=== PATIENT | male | born 1960 | race Caucasian/White ===

== ENCOUNTER 2019-11-15 05:52 | Inpatient (IN) | payer OTHER ==
--- NOTE | 2019-11-02 13:22 | HP ---
HISTORY AND PHYSICAL: DATE OF ADMISSION/SURGERY: 11/15/19 DATE OF OFFICE VISIT: 11/02/19 SURGEON: Jaylyn Miller MD.* (DICTATED BY ALINA RAGLAND) PROCEDURE: Right total hip arthroplasty. CHIEF COMPLAINT: Right hip pain. HISTORY OF PRESENT ILLNESS: Mr. Man is a 59-year-old gentleman with endstage osteoarthritis of the right hip. He has failed conservative treatment and elected to proceed with a right total hip arthroplasty. PAST MEDICAL HISTORY: 1. AFib. 2. Hypertension. 3. Prostate cancer. 4. Sleep apnea. PAST SURGICAL HISTORY: 1. Left shoulder clavicle resection. 2. Hemorrhoidectomy. 3. Hernia repair x2. 4. Cardiac ablation. CURRENT MEDICATIONS: 1. Propafenone 150 mg as needed. 2. Xanax 2.5 mg as needed. 3. Diltiazem 180 mg daily. 4. Multivitamin. 5. CoQ10. ALLERGIES: No known drug allergies. FAMILY HISTORY: Diabetes, coronary artery disease, and cancer. SOCIAL HISTORY: This 59-year-old gentleman lives with his . He does not smoke or use drugs. REVIEW OF SYSTEMS: A complete 14-point review of systems was reviewed with the patient, all negative or noncontributory. He denies history of DVT, PE, hepatitis, HIV, or anesthesia problems. PHYSICAL EXAMINATION GENERAL: He is well developed, well nourished, no acute distress. VITAL SIGNS: He stands 66 inches tall, weighs 186 pounds, blood pressure 140/68 , heart rate 75. HEENT: Normocephalic, atraumatic. NECK: Supple. No palpable lymph nodes. PULMONARY: The lungs are clear to auscultation bilaterally. CARDIO: Regular rate and rhythm. Strong S1 and S2. ABDOMEN: Soft, nontender, nondistended. MUSCULOSKELETAL: Right lower extremity skin is intact. There are no open wounds or abrasions. He walks with an antalgic type gait favoring his right hip. He has decreased internal and external rotation of the right hip. He is able to to dorsiflex and plantarflex. He has 2+ dorsalis pedis pulse and intact sensation. NEUROLOGIC: He is alert and oriented x3. ASSESSMENT AND PLAN: Mr. Man is a 59-year-old gentleman with endstage osteoarthritis of the right hip. He has failed conservative treatment and elected to proceed with a right total hip arthroplasty. Surgery is scheduled for 11/15/[address] Miller discussed the risks and benefits of the surgery at today's visit and all of his questions were answered. He will follow up with Dr. Miller 2 weeks after the surgery. ALINA RAGLAND [id number]/[facility] #: [id number] [facility]ITAL[facility]
[~2019-11-15 05:52] MED LIST: Buffered Lidocaine 1% SYRIN* 1 ML/SYRINGE INTRADERM ONE; Tranexamic Acid 1,000 MG in NS 0.9% 50 ML* (outpatient use) IV SCH
--- OUTSIDE RECORDS SUMMARY | 2019-11-15 05:55 | XMS REPORT | Continuity of Care Document ---
:1960 External Reference #:[id number] Author Name Jaylyn Miller M.D. (transmitted by agent of provider Jennifer Still) Address [address] [place] [address] Care Team Providers Name Role Phone Roslyn Magana FNP - Family Care Team Information [employer] [phone] Problems Active Problems Provider Date Localized, primary osteoarthritis of the pelvic Jaylyn Miller M.D. Onset: region and thigh Social History Type Date Description Comments Sex Unknown Tobacco Use Start: Unknown Patient has never smoked Smoking Status Reviewed: 11/02/19 Patient has never smoked Allergies, Adverse Reactions, Alerts Description No Known Drug Allergies Medications Active Medications SIG Qnty Indications Ordering Provider Date Propafenone HCL three times a 90tabs Jaylyn Miller M.D. 09/24/2019 150mg day Tablets Oxycodone-Acetaminoph 1-2 tabs by 60tabs M25.551 Jaylyn Miller M.D. 2018 en mouth every 12 5-325mg Tablets hours as needed for pain Xanax 2.5mg prn Unknown Diltiazem HCL ER 1 by mouth every Unknown Beads day 180mg Caps ER 24HR Multi For Him 50+ once a day Unknown Tablets Co Q-10 Unknown Immunizations Description No Information Available Vital Signs Date Vital Result Comment 11/02/2019 10:05am Height 66 inches 5'6" Weight 186.00 lb Heart Rate 75 /min BP Systolic 140 mmHg BP Diastolic 68 mmHg Respiratory Rate 16 /min Pain Level 5 BMI (Body Mass Index) 30.0 kg/m2 09/24/2019 2:32pm Height 66 inches 5'6" Weight 184.00 lb Heart Rate 68 /min BP Systolic 148 mmHg BP Diastolic 100 mmHg Body Temperature 97.4 F Pain Level 5 BMI (Body Mass Index) 29.7 kg/m2 Results Test Acquired Date Facility Test Result H/L Range Note Type & Screen 11/02/2019 [facility] Patient Blood AB Positive [address] [place] [address] [phone] Antibody Screen NEGATIVE 1 PAIN IN RIGHT HIP, UNILATERAL PRIMARY OSTEOARTHRIT Procedures Description No Information Available Medical Devices Description No Information Available Encounters Type Date Location Provider Dx Diagnosis Office Visit 09/24/2019 [facility] Jaylyn Miller M25.551 Pain in right hip 2:00p at [facility] M16.11 Unilateral primary osteoarthritis, right hip Assessments Date Code Description Provider 11/02/2019 M16.11 Unilateral primary osteoarthritis, right hip Jaylyn Miller M.D. 11/02/2019 M25.551 Pain in right hip Jaylyn Miller M.D. 09/24/2019 M25.551 Pain in right hip Jaylyn Miller M.D. 09/24/2019 M16.11 Unilateral primary osteoarthritis, right hip Jaylyn Miller M.D. Plan of Treatment Future Appointment(s):11/15/2019 4:30 pm - Frankie Mora PA-C at [facility] at P[place]7511/15/2019 4:30 pm - ALINA Wang at [facility] at [place]/28/2019 10:30 am - Jaylyn Miller M.D. at [facility] at Lqod[place]0811/15/2019 4:30 pm - Jaylyn Miller M.D. at [facility] at [place]1111/02/2019 - Jaylyn Miller M.D.M16.11 Unilateral primary osteoarthritis, right hipFollow up:Follow up: 2 weeks after bpmrvviS98.551 Pain in right hip Functional Status Description No Information Available Mental Status Description No Information Available Referrals Description No Information Available
--- OUTSIDE RECORDS SUMMARY | 2019-11-15 05:55 | XMS REPORT | Continuity of Care Document ---
:1960 Author Organization 0001 - [employer] [facility] Address [address] [place] [address] Phone Care Team Providers Name Role Phone BRYAN HARDING MD Unavailable Unavailable Allergies, Adverse Reactions, Alerts Substance Reaction Status No Known Allergies Active Medications Medication Instructions Dosage Effective Status Comments Dates (start - stop) levofloxacin 500 mg take 1 tablet by 500 MG - Active tablet oral route every 24 hours diltiazem ER 180 mg take 1 capsule by - Active capsule,24 hr,extended oral route on release days of palpatations. tramadol 50 mg tablet take 1 by Oral 1 - Active route every 6 hours gabapentin 300 mg capsule take 1 capsule by 300 MG - Active oral route 3 times every day hydrochlorothiazide 12.5 take 1 by Oral 1 - Active mg tablet route every day propafenone 150 mg tablet take 3 by Oral - Active route in case of rapidheart rate. as needed alprazolam 0.5 mg tablet take 1 tablet by - Active MDD 3 ORAL route 3 times every day as needed. oxycodone-acetaminophen 5 take 1 tablet by 1.00 tablet - Active mg-325 mg tablet oral route every 6 hours as needed multivitamin tablet take 1 tablet by - Active oral route every day with food coenzyme Q10 10 mg - Active capsule Problems Condition Effective Dates (start - stop) Clinical Status Elevated PSA Prostate cancer Right testicular pain Prostate cancer Essential (primary) hypertension - Elevated prostate specific antigen - [PSA] Encntr for general adult medical exam w/o abnormal findings Primary osteoarthritis of both hips Spondylosis of lumbar region without myelopathy or radiculopathy Elevated PSA Essential (primary) hypertension Right testicular pain Encounter for surgical aftcr following - surgery on the sys Preop cardiovascular exam PAF (paroxysmal atrial fibrillation) Essential (primary) hypertension - Cntct w and expsr to environ tobacco - smoke (acute) (chronic) Preoperative general physical examination Testicular pain, right Essential hypertension Paroxysmal atrial fibrillation Cntct w and expsr to environ tobacco - smoke (acute) (chronic) Right inguinal hernia Right lower quadrant pain - Elevated PSA Testicular pain, right Primary osteoarthritis of both hips Essential hypertension Cntct w and expsr to environ tobacco - smoke (acute) (chronic) PSA elevation Right testicular pain Malignant neoplasm of prostate - Prostate cancer Essential hypertension Cntct w and expsr to environ tobacco - smoke (acute) (chronic) Prostate cancer Hematuria, gross Prostate cancer Testicular pain, right Prostatitis, acute Encounter for surgical aftcr following - surgery on the sys Klebsiella pneumoniae sepsis Prostate cancer Prostate cancer Preoperative general physical examination Groin pain, chronic, right Paroxysmal atrial fibrillation Essential hypertension Testicular pain, right Testicular pain, right Elevated PSA Elevated PSA Groin pain, chronic, right Other chronic pain Elevated blood pressure reading Elevated PSA Essential hypertension Cntct w and expsr to environ tobacco - smoke (acute) (chronic) Elevated PSA Paroxysmal atrial fibrillation Essential hypertension Irritable bowel syndrome with constipation Essential hypertension Elevated PSA Chronic gastritis without bleeding, unspecified gastritis type Encounter for general adult medical - exam w abnormal findings Body mass index (BMI) 30.0-30.9, adult - Encounter for screening for other - disorder Bronchitis Essential hypertension Cntct w and expsr to environ tobacco - smoke (acute) (chronic) Right inguinal hernia Elevated blood pressure reading Encntr for f/u exam aft trtmt for cond - oth than malig neoplm Right inguinal hernia Elevated blood pressure reading Right groin hernia Groin strain, right, subsequent encounter Essential (primary) hypertension Chronic gastritis without bleeding, unspecified gastritis type Abdominal muscle strain, initial encounter Paroxysmal atrial fibrillation Acute non-recurrent maxillary sinusitis Bronchitis Other specified health status - Other specified health status - Rubella immune status not known Encntr for general adult medical exam w/o abnormal findings Essential (primary) hypertension Irritable bowel syndrome with constipation Paroxysmal atrial fibrillation - Benign prostatic hyperplasia with lower urinary tract symptoms, unspecified morphology Essential (primary) hypertension Irritable bowel syndrome with constipation Essential (primary) hypertension - Hypertension Paroxysmal atrial fibrillation Benign prostatic hyperplasia with lower urinary tract symptoms, unspecified morphology Impaired vision Atrial fibrillation Pain, joint, multiple sites Elevated blood pressure Pain, joint, multiple sites Screening examination for infection due to a bacteria Fatigue Procedures Procedure Date Procedure Unknown Results Test Name Date and Time Measure Units Reference Range Abnormal Flag Status Comments Panel Description: PHI13 Final FREE PSA 12:01:00 0.7 ng/mL Final [-2]PROPSA 12:01:00 17.2 pg/mL Final % FREE PSA 12:01:00 10 % Final % Free PSA Probability of Cancer < or =10% 56%11 - 15% 28%16 - 20% 20%21 - 25% 16%>25% 8%

[facility] 12:01:00 66.4 Final phi range INDEX Probability 95% Confidence of Cancer Interval 0 - 26.9 9.8% 5.2 - 15.4%27.0 - 35.9 16.8% 11.3 - 22.2%36.0 - 54.9 33.3% 26.8 - 39.9%> or = 55.0 50.1% 39.8 - 61.0% AD DITIONAL INFORMATION ----The testing method is an immunoenzymatic assaymanufactured by [employer] and performedon the [employer] DxI 800.Values obtained with different assay methods orkits may be different and cannot be usedinterchangeably.Test results cannot be interpreted as absoluteevidence for the presence or absence ofmalignant disease.Test Performed by:[address] [address]Ocn Director: Elbert Rankin M.D. Ph.D.; CLIA# [id number]

Panel Description: MPHI1 Final PROSTATE 7.3 ng/mL <=3.5 H Final Test Performed by:[facility] 12:01:[address] [address]Llh Director: Elbert Rankin M.D. Ph.D.; CLIA# [id number]

Encounters Encounter Practice Location Reason(s) Diagnoses Date Provider Providers Description For Visit Copied on Encounter 0001 [facility] Urology Elevated PSA GTx, BRYAN. 30 33-57 [address] [address], [place], [place], [place], [address], [place] [address]. tel:+ tel:[phone] - Lab - [facility] 3 GTx, 0-201 BRYAN. 30 -57 9 [address] [address], [place], [place], [place], [address], [place] [address]. tel:+60 tel:[phone] - [facility] Primary Sep-2 [facility] [address] [place] [address] [place], [place], [place] [address]. [place], [place], tel:[phone], [place] 056432 tel:[phone] 2019 - [facility] Primary Nov- [employer], [facility] 9[address]201 GALE. [facility] [place] [address] 119 [facility], [place], [place], [place] [address]. [place], tel:[phone], [place] 873524 tel:[phone] 0001 - [facility] Urology Prostate cancer Nov-0 [employer] [facility] [employer], 6-201 BRYAN. 9 [facility], [facility], [place], [place], [place], [address], [place] [address]. tel:+60 tel:[phone] - S Urology Right testicular Nov-0 KRAVCHICK S Inc, painProstate 1- BRYAN. cancer 9 [facility], [facility], [place], [place], [place], [address], [place] [address]. tel:+60 tel:[phone] - S Primary Essential Oct-2 [employer], [place] (primary) 1- GALE. [facility] [place] hypertensionEleva 9 PC 119 [facility] prostate [facility], specific antigen [facility] [[place] [address]. [place], general adult tel:[phone], [place] medical exam w/o 860221 tel:[phone] findingsPrimary osteoarthritis of both hipsSpondylosis of lumbar region without myelopathy or radiculopathy 0001 - S Primary Elevated Oct-0 [employer], [facility] [place] PSAEssential 8-201 GALE. [facility] [place] (primary) 9 PC 119 [facility] hypertension [facility], [place], [place], [place] [address]. [place], tel:[phone], [place] 358157 tel:[phone] 0001 - [facility] Urology Right testicular Aug-2 KRAVCHICK [employer] Inc, painEncounter for 3-201 BRYAN. surgical aftcr 9 [facility] surgery [facility], on the [address], [place], [place], [place], [address], [place] [address]. tel:+ tel:[phone] - [facility] Preop Apr-3 AHMED S Inc, Cardiology cardiovascular 0-201 DANIEL. [facility] 33-57 examPAF 9 30 Jackchaim Santiago (paroxysmal Street, Street, atrial [address], [place] fibrillation)Esse [place], [place], ntial (primary) [place], [address], [place] hypertensionCntct [address]. tel:+60 w and expsr to tel:[phone] environ tobacco [phone] smoke (acute) (chronic) 0001 - S Primary Preoperative Apr- [employer] Inc, [facility] [place] general physical 9-201 GALE. [facility] [place] examinationTestic 9 PC 119 [facility] ular pain, [facility], [place], [place], [place] hypertensionParox [address]. [place], ysmal atrial tel:[phone], [place] fibrillationCntct 119553 tel:+[phone] w and expsr to [phone] environ tobacco smoke (acute) (chronic) 0001 - [facility] Surgery Right inguinal Lino-2 ARONIS [employer] Inc, herniaRight lower 5-201 GARY. 30 33-57 quadrant pain 9 [facility], [address], [address], [place], [place], [place], [address], [place] [address]. tel:+60 tel:[phone] - [facility] Urology Elevated Lino-0 KRAVCHICK S Inc, PSATesticular 7- BRYAN. 30 33-57 pain, right [address], [place], [place], [place], [address], [place] [address]. tel:+ tel:[phone] - [facility] Primary Primary January- [employer], [facility] [place] osteoarthritis of GALE. [facility] [address] both 9 PC 119 [facility], hypertensionCnt[facility] [place] [address]. [place], environ tobacco tel:[phone], [place] smoke (acute) [address] tel:+ (chronic) [phone] 0001 - [facility] Urology PSA Apr-1 SeGan Angel [employer] S Inc, elevationRight 5- BRYAN. 30 -57 testicular pain 9 [facility], [address], [place], [place], [place], [address], [place] [address]. tel: tel:[phone] - [facility] Urology Malignant Apr-0 [employer] Inc, neoplasm of BRYAN. 30 -57 prostate 9 [facility], [address], [place], [place], [place], [address], [place] [address]. tel: tel:[phone] - [facility] Primary Prostate Mar- SKIFF S Inc, [facility] [place] cancerEssential 8 GALE. [facility] 3357 [place] hypertensionCntct [address] [facility] and expsr to [facility], [place], [place], [place] smoke (acute) [address]. [place], (chronic) tel:[phone], [place] 441616 tel: [phone] 0001 - [facility] Urology Prostate cancer Dec- [employer], BRYAN. 30 57 9 [facility], [facility], [place], [place], [address], [place] [address]. tel: tel:[phone] - [facility] Urology Hematuria, gross Nov- MATIAS [facility], 3 CHRISTOPHER 33-57 9 . 30 [facility], [place], [place] [address], [place], [place] [address], [place], tel:[phone] tel:[phone] [facility] Urology Prostate Jorge Luis- [employer], cancerTesticular 5- BRYAN. 30 3357 pain, 9 [facility] rightProstatitis, [facility], acuteEncounter 460, [place] for surgical [place], aftcr [place], [address], [place] the [address]. tel: sys tel:[phone] - [facility] Primary Klebsiella Dec-2 SKIFF [facility] [employer], [facility] [place] pneumoniae 4-201 GALE. [facility] 33-57 [place] sepsisProstate 8 PC 119 Whfernandez Jack cancer [facility], [place], [place] [address]. [place], [place], tel:[phone], [place] 435821 tel: [phone] 0001 - S Urology Prostate cancer Dec-1 [employer], 4-201 BRYAN. 30 [address] [facility], [facility], [place], [place], [address], [place] [address]. tel: tel:[phone] - [facility] Primary Preoperative Dec-0 [employer]IFF [facility] [employer], [facility] [place] general physical 3-201 GALE. [facility] 33-57 [place] examinationGroin 8 PC 119 Whig Jack pain, chronic, [facility], rightParoxysmal [place], [place], [place] atrial [address]. [place], [place], fibrillationEssen tel:[phone], [place] tial 874728 tel: hypertensionTesti [phone] cular pain, right 0001 - [facility] Urology Testicular pain, Nov-3 [employer], right 0-201 BRYAN. 30 [address] [facility], [facility], [place], [place], [address], [place] [address]. tel: tel:[phone] - S Urology Elevated PSA Oct-3 [employer], 1-201 BRYAN. 30 [address] [facility], [facility], [place], [place], [address], [place] [address]. tel: tel:[phone] - [facility] Urology Elevated PSA Aug-3 [employer], 1-201 BRYAN. 30 [address] [facility], [address], [place], [place], [place], [address], [place] [address]. tel:+60 tel:[phone] - S Surgery Groin pain, Aug- ARONIS S Inc, chronic, 7201 GARY. 30 - rightOther 8 [facility], Street, painElevated [address], [place] blood pressure [place], [place], [address], [place] [address]. tel:+60 tel:[phone] - S Primary Elevated Aug-0 [employer], [facility] PSAEssential 6-201 GALE. [facility] [place] hypertensionCntct 8 PC 119 [facility] Jack w and expsr to [facility], [place], [place], [place] smoke (acute) [address]. [place], (chronic) tel:[phone], [place] 796673 tel:[phone] 0001 - S Primary Elevated Apr-3 [facility]US[facility] Technology SolutionsS Inc, [facility] PSAParoxysmal 0-201 GALE. [facility] [place] atrial 8 PC 119 [facility] fibrillationEssen [facility], [facility] hypertension [place], [place] [address]. [place], [place], tel:[phone], [place] 128610 tel:[phone] 0001 - S Primary Irritable bowel Apr-1 [employer], [facility] syndrome with 3-201 GALE. [facility] 3357 [place] constipationEssen 8 PC 119 [facility], hypertensionEleva [place], [place] astrid PSAChronic [address]. [place], gastritis without tel:[phone], [place] bleeding, 262686 tel:[phone] unspecified [phone] gastritis typeEncounter for general adult medical exam w abnormal findingsBody mass index (BMI) 30.0-30.9, adultEncounter for screening for other disorder 0001 - [facility] Primary BronchitisEssenti Dec-2 SKIFF [employer] Inc, [place] al 6-201 GALE. [facility] 33-57 [place] hypertensionCntct 7 PC 119 [facility] and expsr to [facility], [place], [place], [place] smoke (acute) [address]. [place], (chronic) tel:[phone], [place] 858392 tel:[phone] 0001 - [facility] Surgery Right inguinal Lino-3 ARONIS [facility] [employer], herniaElevated 0-201 GARY. 30 33-57 blood pressure 7 Jack wrightEncntr for [place], f/u exam aft [address], [place] trtmt for cond [place], [place], [address], [place] neoplm [address]. tel:+60 tel:[phone] - [facility] Surgery Right inguinal Lino-0 ARONIS [facility], herniaElevated 2-201 GARY. 30 33-57 blood pressure [address] [facility], [address], [place], [place], [place], [address], [place] [address]. tel:+60 tel:[phone] - [facility] Primary Right groin May-3 [facility], [place] hernia 0-201 GALE. [facility] - [place] 7 PC 119 [facility], [place], [place] [address]. [place], [place], tel:[phone], [place] 069940 tel:[phone] 0001 - [facility] Primary Groin strain, Apr-2 SKIFF [facility], Care [facility], subsequent 4-201 GALE. [facility] 33- [place] encounter 7 PC 119 [facility], [place], [place] [address]. [place], tel:[phone], [place] 509585 tel:[phone] 0001 - [facility] Primary Essential Apr-0 [employer] [facility], [place] (primary) 3-201 GALE. [facility] 33-57 [place] hypertensionChron 7 PC 119 [facility], without bleeding, [place], [place] unspecified [address]. [place], gastritis tel:[phone], [place] typeAbdominal 374503 tel:[phone] muscle strain, [phone] initial encounterParoxysm al atrial fibrillation 0001 - [facility] Primary Acute Oct-3 SKIFF S Inc, [place] non-recurrent GALE. [address] maxillary 6 PC 119 [facility] sinusitisBronchit [facility], [place], [place], [place] [address]. [place], tel:[phone], [place] 776843 tel:[phone] 0001 - [facility] Primary Other specified Oct-2 [facility], [facility] health status 1- GLAE. [address] [place], [place] [address]. [place], tel:[phone], [place] 525248 tel:[phone] 0001 - S Primary Other specified Oct-0 [facility], [facility] health status - GALE. [address] [place], [place] [address]. [place], [place], tel:[phone], [place] 166678 tel:[phone] 0001 - [facility] Primary Rubella immune Sep-2 [facility] [facility], [facility] status not known GALE. [address] [place], [place] [address]. [place], tel:[phone], [place] 038272 tel:[phone] 0001 - [facility] Primary Encntr for May- [facility] [facility], [facility] general adult GALE. [address] medical exam w/o 6 PC 119 [facility] abnormal [facility], [place], [place], [place] (primary) [address]. [place], hypertensionIrrit tel:[phone], [place] able bowel 295533 tel:[phone] syndrome with [phone] constipationParox ysmal atrial fibrillation 0001 - [facility] Primary Aug-0 SKIFF S Inc, [place] GALE. [address] 6 [address] 119 [facility], [place], [place] [address]. [place], [place], tel:[phone], [place] 093018 tel:[phone] 0001 - S Primary Benign prostatic Aug-0 [facility] [employer], [facility] hyperplasia with 8-201 GALE. [facility] 33-57 [place] lower urinary 6 PC 119 [facility] tract symptoms, [facility], unspecified [place], [place] morphologyEssenti [address]. [place], al (primary) tel:[phone], [place] hypertension 178941 tel:[phone] 0001 - S Primary Irritable bowel Apr-2 [facility] [employer], [facility] syndrome with 2-201 GALE. [facility] 33-57 [place] constipation 6 PC 119 [facility], [place], [place], [place] [address]. [place], [place], tel:[phone], [place] 051490 tel:[phone] 0001 - S Primary Essential Dec-1 LORD CAMERON. [facility], [facility] (primary) 7-201 [facility] 119 33-57 [place] hypertension 5 [facility], [place], [place], [place] [address]. [place], [place], tel:[phone], [place] 524558 tel:[phone] 0001 - [facility] Primary HypertensionParox Dec-1 [facility] [employer], [facility] ysmal atrial 4-201 GALE. [facility] 33-57 [place] fibrillationBenig 5 PC 119 [facility] n [facility], hyperplasia with [place], [place], [place] lower urinary [address]. [place], tract symptoms, tel:[phone], [place] unspecified 129416 tel:[phone] morphologyImpaire [id number] d vision 0001 - S Primary Atrial Sep-2 [facility] [employer], [facility] fibrillationPain, 4-201 GALE. [facility] 33-57 [place] joint, multiple 5 PC 119 [facility] sitesElevated [facility], blood pressure [place], [place], [place] [address]. [place], tel:[phone], [place] 880004 tel:[phone] 0001 - S Primary Pain, joint, Sep-1 [facility] [employer], [facility] multiple 8-201 GALE. [facility] 33-57 [place] sitesScreening 5 PC 119 Astrid Santiago examination for , [facility], infection due to [place], [place] bacteriaFatigue [address]. [place], tel:[phone], 460922 tel:[phone] Family History Family Member Diagnosis Age At Onset Father Cardiovascular disease Mother Cardiovascular disease Family h/o Cancer - prostate Mother Diabetes mellitus type 2 Father Diabetes mellitus type 2 Immunizations Vaccine Date Status Comments Immunization Unknown Payers Payer name Insurance type Covered green party ID Authorization(s) [facility] [id number] Social History Type Description Quantity Date Captured Comments Alcohol Use Details Unknown Caffeine Use Details Unknown Tobacco Use Status Unknown Smoking Status Unknown Vital Signs Date / Height Weight BMI Pulse Blood Temperature Respiratory Body Head BMI Time: Rate Pressure Rate Surface Circumference percentile Area Unknown Chief Complaint And Reason For Visit No information Reason For Referral Reason For Referral Unknown Plan Of Care Date Type Action Status Referral Ordered: ordered Pathology (tissue specimen) Referral Referred To: ordered [facility] [address] [place], [phone] Ordered: Referrals: Urology. [facility]. Consult Referral Ordered: ordered CT Urogram (No PO Contrast) Appointment date/timeframe: 12/04/2018 Referral Ordered: ordered MRI, Pelvis w/ and w/o contrast Appointment date/timeframe: 11/27/2018 Referral Ordered: ordered Urology (related to Elevated PSA) Referral Ordered: ordered Referrals: Urology. Location: [facility] Urology Referral Ordered: ordered Xray Chest 2 view Appointment date/timeframe: Today Referral Ordered: ordered *EKG Complete Appointment date/timeframe: Today Referral Ordered: ordered Referrals: Surgery. Location: [facility] Surgery. Evaluate and treat Appointment date/timeframe: 03/15/2017 Referral Referred To: ordered JAMI BARONE OD [address] [place], [address] [phone] Ordered: Referrals: Supervisor Respiratory. JAMI BARONE OD. Evaluate and treat Appointment date/timeframe: 2 Weeks Referral Referred To: ordered GALE NOBLES MD [address] [place], [address] [phone] Ordered: Referrals: Cardiology. GALE NOBLES MD. Evaluate and treat Appointment date/timeframe: 1 Month Appointment [facility] Appointment [facility] Date Type Problem Goal Intervention Status Start Date Unknown History Of Present Illness Encounter Date Complaint History Of Present Illness No information Functional Status Encounter Date Functional Assessment Cognitive Assessment Unknown Medications Administered Medication Instructions Dosage Effective Dates (start - stop) Status Comments Drug Treatment Unknown Instructions Date Instruction Additional Information Risks and benefits of new medication Related to [facility]vated [facility]. [facility] of both [facility] Followed by urology Related to Elevated prostate specific antigen [PSA] Screening blood tests done today Related to Encntr for general adult medical exam w/o abnormal findings Will start hydrochlorthiazide once a Related to Essential ( primary) day in the morning. We would like the hypertension blood pressure to be below 130/80 on most occaisions. An ideal blood pressure is around 120/80. History of paroxysmal atrial Related to PAF (paroxysmal atrial fibrillation status post ablation fibrillation) therapy done in 2004 currently on diltiazem and propafenone. He is in normal regular sinus rhythm asymptomatic with occasional palpitations. No further testing needed I will see him in 6 months sooner if symptomatic 58-year-old male with history of Related to Preop cardiovascular hypertension paroxysmal atrial exam fibrillation status post radiofrequency catheter ablation for atrial fibrillation in [place] 2004 currently on diltiazem and propafenone, no anti-coagulation came in for preop cardiac evaluation prior to nerve ablation procedure scheduled next week. He is asymptomatic from cardiac standpoint without chest pain chest pressure shortness of breath occasional palpitations but no syncope near syncopal episodes. He has history of hypertension for which he takes diltiazem. He is on no anticoagulation EKG shows normal regular sinus rhythm. He is asymptomatic unchanged EKG and unremarkable physical examination no further cardiac work-up needed he is undergoing low risk surgery I would continue current medical therapy regular follow-up in 6 months Will hold any blood thinning agents Related to Paroxysmal atrial prior to the procedure. fibrillation Scheduled for radioablation of Related to Testicular pain, right irritated neve fibers Continue the ditiazem. Related to Essential hypertension Pending cardiac clearance . Otherwise, Related to Preoperative general no contratindication to the indicated physical examination procedure Will use tramadol while starting the Related to [facility] of [facility] Continue ross current blood pressure Related to Essential hypertension medicaitons Risks and benefits of new medication Related to PSA elevation discussed. Related to Malignant neoplasm of prostate Related to Malignant neoplasm of prostate Related to Malignant neoplasm of prostate Related to Malignant neoplasm of prostate Related to Malignant neoplasm of prostate TAke the diltiazem once daily. Call if Related to Essential hypertension there are problems. Will try to arrange for a second Related to Prostate cancer opinion through [facility] after the results of the second biopsy are back. We decided to perform MRI guided Related to Prostate cancer biopsies of suspicious lesionWe will start antibiotics treatment 2 weeks before his biopsy and continue for additional 5 days Will folllw up with Dr. Harding. Related to Prostate cancer Will complete the course of Related to Klebsiella pneumoniae antibiotics. sepsis He will take diltiazem ross morning of Related to Essential hypertension the procedure as well as alprazolam to prevent undue rise in BP. After the procedure , he will try changing to amlodipine from lisinopil . Uses propafenone and ditiazem on a as Related to Paroxysmal atrial needed basis for atrial fibrillation . fibrillation To take ross diltiazem the morning of the procedure with the intent of preventing excessive rise in BP adn the A fib. No contraindication to proceeding with Related to Preoperative general this procedure. He will take diltiazem physical examination and xanax prior to coming in for the procedure , as well as the evening before. Your blood pressure is elevated today. Related to Elevated blood pressure Follow up with your PCP for a recheck. reading Will call with results. If further Related to Elevated PSA elevated we will arrange follow up with urology. Will resume the lisinopril when he Related to Essential hypertension receives it from the mail order increse the fiber in the diet. Related to Irritable bowel syndrome with constipation Continue the lisinopril. We would like Related to Essential hypertension the blood pressure to be below 130/80 on most occaisions. An ideal blood pressure is around 120/80. I would not hesitate to use antacids. Related to Chronic gastritis Other mediactions are available. without bleeding, unspecified gastritis type Will recheck the PSA in two to three Related to Elevated PSA months Will start amlodipine 5mg daily. We Related to Essential hypertension would like the blood pressure to be below 130/90 on most occaisions. An ideal blood pressure is around 120/80. REsume monitoring at home Will trat with doxycycline. Use Related to Bronchitis albuterol for the cough. Your blood pressure was elevated Related to Elevated blood pressure today, it is recommended you follow up reading with your primary doctor for further evaluation of this issue and recheck of your blood pressure in several days. 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 Avoid stimulants such as nasal decongestants (Sudafed) and foods with caffeine such as chocolate/coffee/tea which can increase your blood pressure. Avoid high salt intake and salty foods which can also increase your blood pressure by contributing to water retention. If you develop any chest pain, dizziness, blurred vision, palpitations/fluttering in your chest/irregular heart beats, shortness of breath, slurred speech/trouble swallowing or any other concerning symptoms please go to the ER or call 911 for further evaluation/treatment. Your blood pressure was elevated Related to Elevated blood pressure today, it is recommended you follow up reading with your primary doctor for further evaluation of this issue and recheck of your blood pressure in several days. 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 Avoid stimulants such as nasal decongestants (Sudafed) and foods with caffeine such as chocolate/coffee/tea which can increase your blood pressure. Avoid high salt intake and salty foods which can also increase your blood pressure by contributing to water retention. If you develop any chest pain, dizziness, blurred vision, palpitations/fluttering in your chest/irregular heart beats, shortness of breath, slurred speech/trouble swallowing or any other concerning symptoms please go to the ER or call 911 for further evaluation/treatment. Try to avoid increased abdominal Related to Groin strain, right, presures, such as straining or lifting subsequent encounter with [facility] abdomen. If the symptoms persist we can seeka surgical opinion. 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 Related to Abdominal muscle strain, initial encounter Can use Rolaids or tums to reduce Related to Chronic gastritis symptoms. Watch for evidence of blood without bleeding, unspecified in the stool. gastritis type Will check old records as he liked the Related to Essential ( primary) BP med he was taking in the . hypertension Will contiue the lisinopril until then. Will followup in the summer wity a complete physical. Start doxycycline Related to Acute non-recurrent maxillary sinusitis Use the albuterol inhaler to help Related to Bronchitis reduce the cough. Continue to follow with Dr. Nobles Related to Paroxysmal atrial fibrillation Will change to losartan ,50 mg onc Related to Essential (primary) edaily.Monitor blood pressures at home hypertension . We would like the blood pressure to be below 140/90 on most occaisions. An ideal blood pressure is around 120/80. Preventive screening up to date. Related to Encntr for general adult medical exam w/o abnormal findings Will trial linzess, starting 145mg Related to Irritable bowel daily. syndrome with constipation Will continue The cialis Related to Benign prostatic hyperplasia with lower urinary tract symptoms, unspecified morphology Will continue to use te alprazolam when Related to Paroxysmal atrial ross A-fib acts up. fibrillation Will continue the lisinopril Related to Hypertension continue to monitor We would like the Related to Elevated blood pressure blood pressure to be below 140/90 on most occaisions. An ideal blood pressure is around 120/80. 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 Related to Atrial fibrillation Resuming regular physical exercise is Related to Pain, joint, multiple recommended. sites Will screenfor rheumatologic illness, Related to Pain, joint, multiple sites Will check a lyme titer Related to Screening examination for infection due to a bacteria Will have labs done today. Related to Fatigue
--- OUTSIDE RECORDS SUMMARY | 2019-11-15 05:55 | XMS REPORT | Continuity of Care Document ---
:1960 Author Organization 0001 - [employer] [facility] [facility] Address [address] [place] [address] Phone Care Team Providers Name Role Phone [...] Units Reference Range Abnormal Flag Status Comments Unknown Encounters Encounter Practice Location Reason(s) Diagnoses Date Provider Providers Description For Visit Copied on Encounter 0001 - [facility] Urology Elevated PSA KRAVCHICK [facility], BRYAN. -57 0 [facility], [facility], [place], [place], [place], [address], [place] [address]. tel: tel:[phone] - [facility], Cardiology DANIEL. [facility] [address], [address], [place], [place], [place], [address], [place] [address]. tel: tel:[phone] - [facility] [facility] GALE. [facility] [place] [address] [place], [place], [place] [address]. [place], tel:[phone], [place] 846463 tel:[phone] 2019 - [facility] GALE. [address] [place], [place], [place] [address]. [place], tel:[phone], [place] 695966 tel:+ [phone] 0001 - [facility] Urology Prostate cancer Nov-0 KRAVCChurn LabsK [employer], [address] BRYAN. 30 9 [facility], [facility], [place], [place], [place], [address], [place] [address]. tel: tel:[phone] - [facility] Urology Right testicular Nov-0 KRAVCBookMyForex.comS Inc, painProstate 1-201 BRYAN. cancer 9 [facility], [facility], [place], [place], [place], [address], [place] [address]. tel: tel:[phone] - [facility] Primary Essential Oct-2 [employer], [facility] [place] (primary) 1- GALE. [facility] [place] hypertensionEleva 9 PC 119 [facility] prostate [facility] antigen [facility] [PS[place] [address]. [place], general adult tel:[phone], [place] medical exam w/o 357820 tel: abnormal [phone] findingsPrimary osteoarthritis of both hipsSpondylosis of lumbar region without myelopathy or radiculopathy 0001 - [facility] Primary Elevated Oct-0 [employer], [facility] [place] PSAEssential 8-201 GALE. [facility] [place] (primary) 9 [address] [facility], [place], [place], [place] [address]. [place], tel:[phone], [place] 579716 tel: [phone] 0001 [facility] [place] Urology Right testicular Aug-2 Quorum SystemsVCBookMyForex.comS Inc, painEncounter for 3-201 BRYAN. surgical aftcr 9 [facility], on [address], [place], [place], [place], [address], [place] [address]. tel: tel:[phone] - [facility] Preop Robin-3 AHMED S Inc, Cardiology cardiovascular 0-201 DANIEL. [facility] 33-57 examPAF 9 [address], Street, atrial [address], [place] fibrillation)Esse [place], [place], ntial (primary) [place], [address], [place] hypertensionCntct [address]. tel:[phone] w and expsr to tel:[phone] environ tobacco [id number] smoke (acute) (chronic) 0001 - S Primary Preoperative Apr- SKIFF [facility], [facility] [place] general physical 9-201 GALE. [facility] 33-57 [place] examinationTestic 9 PC 119 [facility] ular pain, [facility], [place], [place] hypertensionParox [address]. [place], ysmal atrial tel:[phone], [place] fibrillationCntct 412239 tel:[phone] w and expsr to [phone] environ tobacco smoke (acute) (chronic) 0001 - [facility] Surgery Right inguinal Lino-2 ARONIS [employer], herniaRight lower - GARY. 30 33-57 quadrant pain 9 [facility], [place], [address], [place], [place], [place], [address], [place] [address]. tel:+160 tel:[phone] - S Urology Elevated Lino-0 KRAVCChurn LabsK [employer], PSATesticular 7- BRYAN. 30 33-57 pain, right 9 [facility], [address], [place], [place], [place], [address], [place] [address]. tel:+160 tel:[phone] - S Primary Primary January- LocalViewFF [employer], [facility] [place] osteoarthritis of GALE. [facility] 33-57 [place] both 9 PC 119 [facility], hypertensionCntct [place] [address]. [place], environ tobacco tel:[phone], [place] smoke (acute) 823933 tel:[phone] (chronic) [phone] 0001 - S Urology PSA Apr-1 KRAVCHICK [employer], elevationRight 5-201 BRYAN. 30 33-57 testicular pain 9 [facility], [address], [place], [place], [place], [address], [place] [address]. tel:+ tel:[phone] - [facility] Urology Malignant Apr-0 KRAVCChurn LabsK [employer], neoplasm of BRYAN. 30 prostate 9 [facility], [address], [place], [place], [place], [address], [place] [address]. tel: tel:[phone] - S Primary Prostate Dec- [employer], [facility] [place] cancerEssential GALE. [facility] [place] hypertensionCntct 9 PC 119 Whfernandez Santiago and expsr to [facility], [place], [place], [place] smoke (acute) [address]. [place], (chronic) tel:[phone], [place] 218244 tel: [phone] 0001 - [facility] Urology Prostate cancer Dec- Open LendingK [employer], BRYAN. 30 9 [facility], [facility], [place], [place], [address], [place] [address]. tel: tel:[phone] - [facility] Urology Hematuria, gross MATIAS [facility], CHRISTOPHER 57 9 . [address] [facility], [place] Suite [facility], [place], [place] [address], [place], tel:[phone] tel:[phone] - [facility] Urology Prostate Oct- ArcMail S Inc, cancerTesticular BRYAN. 30 pain, 9 [facility] rightProstatitis, [facility], acuteEncounter 460, [place] for surgical [place], [place], [place], [address], [place] surgery [place] the [address]. tel:+ sys tel:[phone] - S Primary Klebsiella Dec-2 Sproutkin S Inc, [facility] pneumoniae 4-201 GALE. [facility] 33-57 [place] sepsisProstate 8 PC 119 [place] cancer [facility], [place], [place] [address]. [place], tel:[phone], [place] 113153 tel:[phone] 0001 - S Urology Prostate cancer Dec- KRAVCHICK [facility], 4-201 BRYAN. 30 8 [facility], [facility], [place], [place], [address], [place] [address]. tel: tel:[phone] - [facility] Primary Preoperative Dec-0 [employer] [facility] [employer], [facility] general physical 3-201 GALE. [facility] 33-57 [place] examinationGroin 8 PC 119 Wh Jack pain, chronic, [facility], rightParoxysmal [place], [place], [place] atrial [address]. [place], fibrillationEssen tel:[phone], [place] tial 125852 tel: hypertensionTesti [phone] cular pain, right 0001 - [facility] Urology Testicular pain, Nov-3 KRAVCHICK [facility] [employer], right 0-201 BRYAN. 30 8 [facility], [facility], [place], [place], [address], [place] [address]. tel: tel:[phone] - [facility] Urology Elevated PSA Oct- KRAVCHICK [facility] [employer], 1-201 BRYAN. 30 8 [facility], [facility], [place], [place], [address], [place] [address]. tel: tel:[phone] - [facility] Urology Elevated PSA May- KRAVCHICK [facility] [employer], 1-201 BRYAN. 30 8 [facility], [facility], [place], [place], [place], [address], [place] [address]. tel: tel:[phone] - [facility] Surgery Groin pain, Aug-1 ARONIS [facility], chronic, 7- GARY. 30 33-57 rightOther 8 Jack Jack chronic [place], [place], painElevated [address], [place] blood pressure [place], [place], [place], [address], [place] [address]. tel:+60 tel:[phone] - S Primary Elevated Aug-0 LIFE[facility] HEALTHFF [employer], [facility] PSAEssential 6-201 GALE. [facility] 33-57 [place] hypertensionCntct 8 PC 119 fernandez Santiago w and expsr to [facility], [place], [place], [place] smoke (acute) [address]. [place], (chronic) tel:[phone], [place] 885409 tel:[phone] 0001 - [facility] Primary Elevated Robin-3 LIFE[facility] HEALTHGeoshoS Inc, [facility] PSAParoxysmal 0-201 GALE. [facility] 33-57 [place] atrial 8 PC 119 [facility] fibrillationEssen [facility], tial hypertension [place], [place], [place] [address]. [place], tel:[phone], [place] 784566 tel:[phone] 0001 - S Primary Irritable bowel Apr-1 [employer], [facility] syndrome with 3-201 GALE. [facility] 33-57 [place] constipationEssen 8 PC 119 [facility], hypertensionEleva [place], [place], [place] astrid PSAChronic [address]. [place], gastritis without tel:[phone], [place] bleeding, 868099 tel:[phone] gastritis typeEncounter for general adult medical exam w abnormal findingsBody mass index (BMI) 30.0-30.9, adultEncounter for screening for other disorder 0001 - S Primary BronchitisEssenti Dec-2 Local[employer]FF [employer], [facility] [place] al 6-201 GALE. [facility] 33-57 [place] hypertensionCntct 7 PC 119 fernandez Santiago w and expsr to [facility], [place], [place], [place] smoke (acute) [address]. [place], (chronic) tel:[phone], [place] 436320 tel:[phone] 0001 - [facility] Surgery Right inguinal Lino-3 ARONIS [facility], herniaElevated 0-201 GARY. 30 33 blood pressure 7 Jack wrightEncntr for Raad [place], f/u exam aft [address], [place] trtmt for cond [place], [place], [place], [address], [place] neoplm [address]. tel:+60 tel:[phone] - [facility] Surgery Right inguinal Lino-0 ARONIS [facility] [employer], herniaElevated 2-201 GARY. 30 33 blood pressure 7 Jack Shankar, [place], [address], [place], [place], [place], [address], [place] [address]. tel:+60 tel:[phone] - [facility] Primary Right groin May-3 [facility] [facility], [facility] [place] hernia 0-201 GALE. [place] [address] [place] 7 [address] 119 [facility], [place], [place] [address]. [place], tel:[phone], [place] 408918 tel:[phone] 0001 - S Primary Groin strain, Apr-2 [facility], Care [facility], subsequent GALE. [address] encounter 7 PC 119 fernandez [facility], [place], [place], [place] [address]. [place], tel:[phone], [place] 712325 tel:[phone] 0001 - S Primary Essential Apr-0 [employer] [facility], [facility] [place] (primary) 3- GALE. [address] hypertensionChron 7 PC 119 [facility] ic gastritis [facility], without bleeding, [place], [place] unspecified [address]. [place], gastritis tel:[phone], [place] typeAbdominal 857011 tel:[phone] muscle strain, [phone] initial encounterParoxysm al atrial fibrillation 0001 - S Primary Acute Oct-3 [facility], [facility] [place] non-recurrent GALE. [address] maxillary 6 PC 119 [facility] sinusitisBronchit [facility], [place], [place], [place] [address]. [place], tel:[phone], [place] 056463 tel:[phone] 0001 - S Primary Other specified Oct-2 SKIFF S Inc, [facility] [place] health status 1-[address] [place], [place] [address]. [place], tel:[phone], [place] 212485 tel:[phone] 0001 - S Primary Other specified Oct-0 [facility] [facility], [facility] [place] health status 5-[address] [place], [place] [address]. [place], tel:[phone], [place] 159121 tel:[phone] 0001 - S Primary Rubella immune Sep-2 [facility] HE[facility] S Inc, [facility] [place] status not known GALE. [facility] [address] [place], [place] [address]. [place], tel:[phone], [place] 154876 tel:[phone] 0001 - [facility] Primary Encntr for May-1 SKIFF S Inc, [facility] general adult 2- GALE. [address] medical exam w/o 6 PC 119 [facility], [place], [place], [place] (primary) [address]. [place], hypertensionIrrit tel:[phone], [place] able bowel 012083 tel:+60 syndrome with [phone] constipationParox ysmal atrial fibrillation 0001 - [facility] Primary Aug-0 [facility] [facility], [facility] [place] [address] [place], [place], [place] [address]. [place], tel:[phone], [place] 226402 tel:[phone] 0001 - S Primary Benign prostatic Aug-0 [facility] HEALTHFF S Inc, [facility] hyperplasia with [address] lower urinary 6 PC 119 [facility] symptoms, [facility], unspecified [place], [place] morphologyEssenti [address]. [facility], [place], al (primary) tel:[phone], [place] hypertension 577131 tel:[phone] 0001 - [facility] Primary Irritable bowel Apr-2 [employer] [facility], [facility] syndrome with 2-201 GALE. [facility] 33-57 [place] constipation 6 PC 119 [facility], [place], [place], [place] [address]. [place], tel:[phone], [place] 906236 tel:[phone] 0001 - S Primary Essential Dec-1 LORD CAMERON. S Inc, [facility] (primary) 7-201 [facility] 119 33-57 [place] hypertension 5 Whig [facility], [place], [place], [place] [address]. [place], tel:[phone], [place] 236483 tel:[phone] 0001 - S Primary HypertensionParox Dec-1 [facility]FF S Inc, [facility] ysmal atrial 4-201 GALE. [facility] [address] [place] [address] fibrillationBenig 5 PC 119 [facility] n prostatic [facility], hyperplasia with [place], [place], [place] lower urinary [address]. [place], tract symptoms, tel:[phone], [place] unspecified 560946 tel:[phone] morphologyImpaire [id number] d vision 0001 - S Primary Atrial Sep-2 [facility], [facility] fibrillationPain, 4-201 GALE. [facility] 33-57 [place] joint, multiple 5 PC 119 [facility] Hospitalon sitesElevated [facility], blood pressure [place], [place], [place] [address]. [place], tel:[phone], [place] 560989 tel:[phone] 0001 - S Primary Pain, joint, Sep-1 [facility], [facility] multiple 8-201 GALE. [facility] 33-57 [place] sitesScreening 5 PC 119 [facility] examination for [facility], infection due to [place], [place] a bacteriaFatigue [address]. [place], tel:[phone], [place] 306390 tel:[phone] Family History Family Member Diagnosis Age At Onset Father Diabetes mellitus type 2 Mother Diabetes mellitus type 2 Family h/o Cancer - prostate Mother Cardiovascular disease Father Cardiovascular disease Immunizations Vaccine Date Status Comments Immunization Unknown Payers Payer name Insurance type Covered republican ID Authorization(s) [facility] [id number] Social History Type Description Quantity Date Captured [...] Pathology (tissue specimen) Referral Referred To: ordered [facility] [address] [place], [address] [phone] Ordered: Referrals: Urology. [facility]. Consult Referral Ordered: ordered CT Urogram (No PO Contrast) Appointment date/timeframe: 12/04/2018 Referral Ordered: ordered MRI, Pelvis w/ and w/o contrast Appointment date/timeframe: 11/27/2018 Referral Ordered: ordered Urology (related to Elevated PSA) Referral Ordered: ordered Referrals: Urology. Location: [facility] Urology Referral Ordered: ordered Xray Chest 2 view Appointment date/timeframe: Today Referral Ordered: ordered *EKG Complete Appointment date/timeframe: Today Referral Ordered: ordered Referrals: Surgery. Location: [facility] Surgery. Evaluate and treat Appointment date/timeframe: 03/15/2017 Referral Referred To: ordered JAIM BARONE OD [address] [place], [phone] Ordered: Referrals: Marketing Professional. JAMI BARONE OD. Evaluate and treat Appointment date/timeframe: 2 Weeks Referral Referred To: ordered GALE NOBLES MD [address] [place], [address] [phone] Ordered: Referrals: Cardiology. GALE NOBLES MD. Evaluate [...] new medication Related to Elevated PSA discussed. Screening blood tests done today Related to Encntr for general adult medical exam w/o abnormal findings Followed by urology Related to Elevated prostate specific antigen [facility]PSA] [facility] to Primary osteoarthritis of both hips Will start hydrochlorthiazide once a Related to [...] radiofrequency catheter ablation for atrial fibrillation in Thai2004 currently on diltiazem and propafenone, no anti-coagulation [...] Paroxysmal atrial prior to the procedure. fibrillation Continue the ditiazem. Related to Essential hypertension Scheduled for radioablation of Related to Testicular pain, right irritated neve fibers Pending cardiac clearance . Otherwise, Related to [...] second Related to Prostate cancer opinion through [facility] after the results of the second biopsy are back. We decided to perform MRI guided Related to Prostate cancer biopsies of suspicious lesionWe will start antibiotics treatment 2 weeks before his biopsy and continue for additional 5 days Will complete the course of Related to Klebsiella pneumoniae antibiotics. sepsis Will folllw up with Dr. Harding. 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 Avoid stimulants such as nasal decongestants (Sudafed) [...] take them as prescribed by your primary doctor/sprayer automatic spray machine. Avoid stimulants such as nasal decongestants (Sudafed) [...] as straining or lifting subsequent [facility] abdomen. If the symptoms persist we can seeka surgical opinion. 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 Related [...] help Related to Bronchitis reduce the cough. Will change to losartan ,50 mg onc Related to Essential (primary) edaily.Monitor blood pressures at home hypertension . We would like the blood pressure to be below 140/90 on most occaisions. An ideal blood pressure is around 120/80. Continue to follow with Dr. Nobles Related to Paroxysmal atrial fibrillation Preventive screening up to date. Related to Encntr for general adult medical exam w/o abnormal findings Will trial linzess, starting 145mg Related to Irritable bowel daily. syndrome with constipation Will continue the lisinopril Related to Hypertension Will continue to use te alprazolam when Related to Paroxysmal atrial ross A-fib acts up. fibrillation Will continue The cialis Related to Benign prostatic hyperplasia with lower urinary tract symptoms, unspecified morphology continue to monitor We would like the Related to Elevated blood pressure blood pressure to be below 140/90 on most occaisions. An ideal blood pressure is around 120/80. Iwill refer to a local sprayer automatic spray machine. Related to Atrial fibrillation Resuming regular physical exercise is Related to Pain, joint, multiple recommended. sites Will screenfor rheumatologic illness, Related to Pain, joint, multiple sites Will have labs done today. Related to Fatigue Will check a lyme titer Related to Screening examination for infection due to a bacteria
--- OUTSIDE RECORDS SUMMARY | 2019-11-15 05:55 | XMS REPORT | Continuity of Care Document ---
:1960 External Reference #:[id number] Author Name Jaylyn Miller M.D. (transmitted by agent of provider Sanam Mcmullen) Address [address] [facility] [place] [address] Care Team Providers Name Role Phone Roslyn Magana FNP - Family Care Team Information A Operator Problems Active Problems Provider Date Localized, primary [...] BMI (Body Mass Index) 29.7 kg/m2 Results Description No Information Available Procedures Description No Information Available Medical Devices Description No Information Available Encounters Type Date Location Provider Dx Diagnosis Office Visit 09/24/2019 [facility] Jaylyn Miller, M25.551 Pain in right hip 2:00p at [facility] M16.11 Unilateral primary osteoarthritis, right hip Assessments Date Code Description Provider 11/02/2019 M16.11 Unilateral primary osteoarthritis, right hip Jaylyn Miller M.D. 11/02/2019 M25.551 Pain in right hip Jaylyn Miller M.D. 09/24/2019 M25.551 Pain in right hip Jaylyn Miller M.D. 09/24/2019 M16.11 Unilateral primary osteoarthritis, right hip Jaylyn Miller M.D. Plan of Treatment Future Appointment(s):11/28/2019 10:30 am - Jaylyn Miller M.D. at [facility] at Wsziiz3311/15/2019 3:10 pm - Jaylyn Miller M.D. at [facility] at Bqycrc9411/02/2019 - Jaylyn Miller M.D.M16.11 Unilateral primary osteoarthritis, right hipFollow up:Follow up: 2 weeks after lqkxzrqF97.551 Pain in right hip Functional Status Description No Information Available Mental Status Description No Information Available Referrals Description No Information Available
--- OUTSIDE RECORDS SUMMARY | 2019-11-15 05:55 | XMS REPORT | Continuity of Care Document ---
:1960 Author Organization 0001 - [employer] Address [address] [place] [address] Phone Care Team Providers Name Role Phone DANIEL KU MD Unavailable Unavailable Allergies, Adverse Reactions, Alerts [...] Effective Dates (start - stop) Clinical Status Preop cardiovascular exam PAF (paroxysmal atrial fibrillation) HTN (hypertension), benign Cntct w and expsr to environ tobacco - smoke (acute) (chronic) Other specified postprocedural states - Elevated PSA Prostate cancer Right testicular pain [...] exam aft trtmt for cond - oth norman pollack neoplm Right inguinal hernia Elevated blood pressure [...] For Visit Copied on Encounter 0001 - [facility] Preop Talking Data, Cardiology cardiovascular DANIEL. [facility] 33-57 examPAF 0 30 Jack Jack (parox[address]mal Street, Street, atrial [address], [place] fibrillation)HTN [place], [place], (hypertension), [place], [address], [place] benignCntct [place] [address]. tel: expsr to environ tel:[phone] tobacco smoke [id number] (acute) (chronic)Other specified postprocedural states [address] [place] [address] Urology Elevated PSA [employer], BRYAN. 30 [address] [facility] [address] [place], [facility], [place], [place], [place], [address], [place] [address]. tel: tel:[phone] - [facility] U[facility] [employer], BRYAN. 30 33-57 [address] [facility] [address] [place], [address], [place], [place], [place], [address], [place] [address]. tel: tel:[phone] - S Primary Dec-2 SKIFF [employer], Care [place] 6 GALE. [facility] Valley 9 [address] [place], [place], [place] [address]. [place], tel:[phone], [place] 806170 tel:[phone] 0001 - S Primary Nov-1 SKIFF S Inc, [facility] GALE. [facility] Speculator 9 PC [address] [place], [place] [address]. [place], [place], tel:[phone], [place] 719454 tel:[phone] 0001 - [facility] Urology Prostate cancer Nov-0 [employer], BRYAN. 30 9 [facility], [facility], [place], [place], [place], [address], [place] [address]. tel:+60 tel:[phone] - [facility] Urology Right testicular Nov-0 [employer], painProstate BRYAN. 30 cancer 9 [facility], [facility], [place], [place], [place], [address], [place] [address]. tel:+60 tel:[phone] - [facility] Primary Essential Oct-[facility] [employer], [facility] (primary) GALE. [facility] [address] [place] [address] hypertensionEleva 9 PC 119 [facility] astrid prostate [facility], specific antigen [facility] [PSA][place] [address]. [place], general adult tel:[phone], [place] medical exam w/o 289489 tel:[phone] findingsPrimary osteoarthritis of both hipsSpondylosis of lumbar region without myelopathy or radiculopathy 0001 - S Primary Elevated Oct-0 [employer]IFF [employer], [facility] PSAEssential 8 GALE. [facility] [address] [place] [address] (primary) 9 PC 119 [facility] hypertension [place], [place] [address]. [place], tel:[phone], [place] 626772 tel:[phone] 0001 - [facility] Urology Right testicular Aug-2 [employer], painEncounter for 3-201 BRYAN. 30 33-57 surgical aftcr 9 [address] following surgery [address] [place], on the [address], [place], [place], [address], [place] [address]. tel:+160 tel:[phone] - [facility] Preop Apr- [employer] Inc, Cardiology cardiovascular 0-201 DANIEL. [facility] 33-57 examPAF 9 Jack Santiago (paroxysmal Street, [place], atrial [address], [place] fibrillation)Esse [place], [place], ntial (primary) [place], [address], [place] hypertensionCntct [address]. tel:[phone] w and expsr to tel:[phone] environ tobacco [id number] smoke (acute) (chronic) 0001 - [facility] Primary Preoperative Apr- SKIFF [employer], [facility] general physical 9-201 GALE. [facility] 33-57 Speculator examinationTestic 9 PC 119 fernandez Jack ular [facility], [place], [place] hypertensionParox [address]. [place], ysmal atrial tel:[phone], [place] fibrillationCntct 501277 tel:[phone] w and expsr to [phone] environ tobacco smoke (acute) (chronic) 0001 - [facility] Surgery Right inguinal Lino-2 ARONIS [employer], herniaRight lower 5-201 GARY. 30 33-57 quadrant pain 9 Jack [facility], Street, [address], [place], [place], [place], [address], [place] [address]. tel:+[phone] tel:[phone] - [facility] Urology Elevated Lino-0 Kick [employer], PSATesticular 7-201 BRYAN. 30 33-57 pain, right [address], [address], [place], [place], [place], [address], [place] [address]. tel: tel:+ [phone] - S Primary Primary May-1 [employer], [facility] [place] osteoarthritis of 7 GALE. [facility] 33-57 Valley both 9 PC 119 [facility] hipsEssential [facility], hypertensionCntct [place], [facility] [place] [address]. [place], environ tobacco tel:[phone], [place] smoke (acute) 950523 tel:+ (chronic) [phone] 0001 - S Urology PSA Apr-1 [employer], elevationRight 5- BRYAN. 30 33-57 testicular pain 9 [facility], [facility], [place], [place], [address], [place] [address]. tel: tel:[phone] - S Urology Malignant Apr-0 [employer], neoplasm of 8 BRYAN. 30 -57 prostate 9 [facility], [facility], [place], [place], [address], [place] [address]. tel: tel:[phone] - S Primary Prostate Mar-1 [employer] Inc, [facility] [place] cancerEssential 8 GALE. [facility] 33-57 Valley hypertensionCntct [address] [facility] and expsr to [facility], [facility] tobacco [place], [place] smoke (acute) [address]. [place], (chronic) tel:[phone], [place] 553821 tel:[phone] 0001 - S Urology Prostate cancer Mar-1 KRAVCHICK [employer], 1 BRYAN. 30 33-57 9 [facility], [facility], [place], [place], [address], [place] [address]. tel: tel:[phone] - S Urology Hematuria, gross b- MATIAS S Inc, 3-201 CHRISTOPHER 33-57 9 . 30 [facility], [place] [address], [place], [place] [address], [place], tel:+ [phone] tel:[phone] - S Urology Prostate KRAVCHICK [employer], cancerTesticular 5-201 BRYAN. 30 pain, 9 Jack Santiago rightProstatitis, [facility], acuteEncounter 460, [place] for surgical [place], [place], [place], [address], [place] the [address]. tel: sys tel:[phone] - S Primary Klebsiella Dec-2 [employer], [facility] [place] pneumoniae 4-201 GALE. [facility] Speculator sepsisProstate 8 PC 119 [facility] cancer [facility], [place], [place] [address]. [place], tel:[phone], [place] 564757 tel: [phone] 0001 - S Urology Prostate cancer KRAVCCNZZK [employer], 4201 BRYAN. 30 8 [facility], [facility], [place], [place], [address], [place] [address]. tel: tel:[phone] - S Primary Preoperative Dec-0 [employer], [facility] [place] general physical 3-201 GALE. [facility] Valley examinationGroin 8 PC 119 [facility] pain, chronic, [facility], rightParoxysmal [place], [place] atrial [address]. [place], fibrillationEssen tel:[phone], [place] tial 176433 tel:+60 hypertensionTesti [phone] cular pain, right 0001 - S Urology Testicular pain, Nov- KRAVCCNZZK [employer], right 0-201 BRYAN. 8 [facility], [address], [place], [place], [place], [address], [place] [address]. tel: tel:[phone] - [facility] Elevated PSA Oct- KRAVCHICK [employer], 1- BRYAN. 30 8 [facility], [address], [place], [place], [address], [place] [address]. tel: tel:[phone] - S Urology Elevated PSA May-3 KRAVCHICK [employer], 1 BRYAN. 30 8 [facility], [address], [place], [place], [address], [place] [address]. tel:60 tel:[phone] - S Surgery Groin pain, May- ARONIS S Inc, chronic, GARY. 30 rightOther 8 [facility], painElevated [address], [place] blood pressure [place], [place], [place], [address], [place] [address]. tel: tel:[phone] - S Primary Elevated Aug-0 [facility]ITALAlways[facility]ashion S Inc, [facility] PSAEssential 6-201 GALE. [facility] [address] [place] [address] hypertensionCntct 8 PC 119 [facility] w and expsr to [facility], environ tobacco [place], [place] smoke (acute) [address]. [place], (chronic) tel:[phone], [place] 401154 tel:[phone] 0001 - S Primary Elevated Apr- [facility] Inc, [facility] PSAParoxysmal 0-201 GALE. [facility] [address] atrial 8 PC 119 [facility]St[facility], tial hypertension [place], [place] [address]. [place], tel:[phone], [place] 403819 tel:[phone] 0001 - S Primary Irritable bowel Apr- [facility]OS[facility]ITALFF [employer], [facility] syndrome with 3-201 GALE. [facility] [address] constipationEssen 8 PC 119 [facility], hypertensionEleva [place], [place] astrid PSAChronic [address]. [place], gastritis without tel:[phone], [place] bleeding, 337758 tel: unspecified [phone] gastritis typeEncounter for general adult medical exam w abnormal findingsBody mass index (BMI) 30.0-30.9, adultEncounter for screening for other disorder 0001 - [facility] Primary BronchitisEssenti Dec- SKIFF [facility] Inc, [facility] [place] al 6-201 GALE. [facility] Speculator hypertensionCntct 7 PC 119 [facility] w and expsr to [facility], [place], [place], [place] smoke (acute) [address]. [place], (chronic) tel:[phone], [place] 273269 tel:+ [phone] 0001 - [facility] Surgery Right inguinal Lino-3 ARONIS [employer], herniaElevated 0-201 GARY. blood pressure 7 Jack Santiago readingEncntr for [facility], f/u exam aft [address], [place] trtmt for [place], [place], [place], [address], [place] neoplm [address]. tel: tel:[phone] - [facility] Surgery Right inguinal Lino-0 ARONIS [employer], herniaElevated 2-201 GARY. 30 blood pressure 7 Jack Santiago [facility], [address], [place], [place], [address], [place] [address]. tel: tel:[phone] - [facility] Primary Right groin May-3 [employer]IFF [employer], [facility] hernia 0-201 GALE. [facility] Valley 7 PC [address] [place], [place] [address]. [place], tel:[phone], [place] 335723 tel:[phone] 0001 - [facility] Primary Groin strain, Apr-2 SKIFF [facility] Inc, Care [facility], subsequent 4-201 GALE. [facility] Valley encounter 7 PC 119 [place], [place] [address]. [place], tel:[phone], [place] 670353 tel:[phone] 0001 - S Primary Essential Apr-0 [employer]IFF [employer], [facility] [place] (primary) 3-[address] hypertensionChron 7 PC 119 fernandez [place] ic gastritis [facility], without bleeding, [place], [place] unspecified [address]. [place], gastritis tel:[phone], [place] typeAbdominal 525599 tel:+[phone] muscle strain, [id number] initial encounterParoxysm al atrial fibrillation 0001 - [facility] Primary Acute Oct-3 [employer]IFF [employer], [facility] [place] non-recurrent - GALE. [address] maxillary 6 PC 119 [facility] sinusitisBronchit [facility], is [place], [place] [address]. [place], tel:[phone], [place] 651528 tel:[phone] 0001 - S Primary Other specified Oct-2 [facility] [employer], [facility] health status 1-[address] 6 PC 119 [facility], [place], [place] [address]. [place], tel:[phone], [place] 728365 tel:[phone] 0001 - [facility] Primary Other specified Oct-[facility] [employer], [facility] health status 5-[address] 6 PC 119 [facility], [place], [place] [address]. [place], tel:[phone], [place] 587906 tel:[phone] 0001 - [facility] Primary Rubella immune Sep-2 [facility] [employer], Care [place] status not known 9- GALE. [address] 6 PC 119 [facility], [place], [place] [address]. [place], tel:[phone], [place] 467191 tel:[phone] 0001 - [facility] Primary Encntr for May- SKIFF [employer], [facility] [place] general adult 2-[address] medical exam w/o 6 PC 119 [facility] abnormal [facility], findingsEssential [place], [place], [place] (primary) [address]. [place], hypertensionIrrit tel:[phone], [place] able bowel 562613 tel:+60 syndrome with [id number] constipationParox ysmal atrial fibrillation 0001 - [facility] Primary Aug-0 [facility] Inc, Care [place] 9-201 GALE. [facility] 33-57 Speculator 6 PC 119 [facility], [place], [place] [address]. [place], tel:[phone], [place] 843777 tel:[phone] 0001 - [facility] Primary Benign prostatic Aug-0 [facility] Inc, [facility] hyperplasia with 8-201 GALE. [facility] 33-57 Speculator lower urinary 6 PC 119 [facility] tract symptoms, [facility], unspecified [place], [place] morphologyEssenti [address]. [place], al (primary) tel:[phone], [place] hypertension 765361 tel:[phone] 0001 - [facility] Primary Irritable bowel Apr-2 [facility] [employer], [facility] syndrome with 2-201 GALE. [facility] 33-57 Speculator constipation 6 PC 119 [facility], [place], [place] [address]. [place], tel:[phone], [place] 674652 tel:[phone] 0001 - [facility] Primary Essential Dec-1 LORD CAMERON. [facility], [facility] (primary) 7-201 [facility] 119 33-57 Speculator hypertension 5 Whig [facility], [place], [place], [place] [address]. [place], tel:[phone], [place] 498325 tel:[phone] 0001 - [facility] Primary HypertensionParox Dec-1 [facility] Inc, [facility] ysmal atrial 4-201 GALE. [facility] 33-57 Speculator fibrillationBenig 5 PC 119 [facility] n prostatic [facility], hyperplasia with [place], [place] lower urinary [address]. [place], tract symptoms, tel:[phone], [place] unspecified 895722 tel:+60 morphologyImpaire [id number] d vision 0001 - [facility] Primary Atrial Sep-2 [employer], [facility] [place] fibrillationPain, 4-201 GALE. [facility] 33-57 Valley joint, multiple 5 PC 119 Whig Jack sitesElevated [facility], blood pressure [place], [place] [address]. [place], tel:[phone], [place] 399740 tel:[phone] 0001 - [facility] Primary Pain, joint, Sep-1 SKIFF [employer], [facility] [place] multiple 8-201 GALE. [facility] 33-57 Speculator sitesScreening 5 PC 119 Whfernandez Santiago examination for [facility], infection due to Speculator NVMacario a bacteriaFatigue [address]. [place], tel:[phone], [place] 764241 tel:[phone] Family History Family Member Diagnosis Age At Onset Father Diabetes mellitus type 2 Mother Diabetes mellitus type 2 Family h/o Cancer - prostate Mother Cardiovascular disease Father Cardiovascular disease Immunizations Vaccine Date Status Comments Immunization Unknown Payers Payer name Insurance type Covered constitution party ID Authorization(s) [facility] [id number] Social History Type Description Quantity Date Captured [...] Pathology (tissue specimen) Referral Referred To: ordered [facility] [address] [place], [address] [phone] Ordered: Referrals: Urology. [facility]. Consult Referral Ordered: ordered CT Urogram (No PO Contrast) Appointment date/timeframe: 12/04/2018 Referral Ordered: ordered MRI, Pelvis w/ and w/o contrast Appointment date/timeframe: 11/27/2018 Referral Ordered: ordered Urology (related to Elevated PSA) Referral Ordered: ordered Referrals: Urology. Location: [facility] Urology Referral Ordered: ordered Xray Chest 2 view Appointment date/timeframe: Today Referral Ordered: ordered *EKG Complete Appointment date/timeframe: Today Referral Ordered: ordered Referrals: Surgery. Location: [facility] Surgery. Evaluate and treat Appointment date/timeframe: 03/15/2017 Referral Referred To: ordered JAMI BARONE OD [address] [place], [address] [phone] Ordered: Referrals: Airport Control Operator. JAMI BARONE OD. Evaluate and treat Appointment date/timeframe: 2 Weeks Referral Referred To: ordered GALE NOBLES MD [address] [place], [address] [phone] Ordered: Referrals: Cardiology. GALE NOBLES MD. Evaluate [...] Treatment Unknown Instructions Date Instruction Additional Information History of hypertension blood pressure Related to HTN ( hypertension), is controlled continue benign hydrochlorothiazide diltiazem History of paroxysmal atrial Related to PAF (paroxysmal atrial fibrillation status post ablation fibrillation) therapy done in 2004 in normal regular sinus rhythm on propafenone and diltiazem no anticoagulation. Completely asymptomatic continue current medical therapy 59-year-old with paroxysmal atrial Related to Preop cardiovascular fibrillation status post radiofrequency exam ablation done in 2004 currently on diltiazem and propafenone no anticoagulation, history of hypertension but no history of diabetes stroke or TIA he comes in for preop cardiac evaluation prior to hip replacement surgery. Completely asymptomatic no chest pain chest pressure shortness of breath palpitations or syncope. He has no cardiac risk factors therefore is considered to be at low risk for this upcoming surgery no further testing needed I think he should be able to bear the stress of this upcoming hip replacement surgery which is scheduled in next few days Risks and benefits of new medication Related [...] [facility] current blood pressure Related to Essential hypertension [...] second Related to Prostate cancer opinion through [facility] after the results of the second biopsy [...] Related to Irritable bowel syndrome with constipation I would not hesitate to use antacids. Related to Chronic gastritis Other mediactions are available. without bleeding, unspecified gastritis type Continue the lisinopril. We would like Related to Essential hypertension the blood pressure to be below 130/80 on most occaisions. An ideal blood pressure is around 120/80. Will recheck the PSA in two to [...] take them as prescribed by your primary doctor/finishing machine tender. Avoid stimulants such as nasal decongestants (Sudafed) [...] take them as prescribed by your primary doctor/finishing machine tender. Avoid stimulants such as nasal decongestants (Sudafed) [...] as straining or lifting subsequent encounter with the [facility] abdomen. If the symptoms persist we can seeka surgical opinion. Continue to folllow with the Related to Paroxysmal atrial finishing machine tender. fibrillation This should resolve with time. Related [...] in the summer wity a complete physical. Use the albuterol inhaler to help Related to Bronchitis reduce the cough. Start doxycycline Related to Acute non-recurrent maxillary sinusitis Will change to losartan ,50 mg onc [...] An ideal blood pressure is around 120/80. Resuming regular physical exercise is Related to Pain, joint, multiple recommended. sites Iwill refer to a local finishing machine tender. Related to Atrial fibrillation Will screenfor rheumatologic illness, Related to Pain, joint, multiple sites Will have labs done today. Related to Fatigue Will check a lyme titer Related to Screening examination for infection due to a bacteria
--- OUTSIDE RECORDS SUMMARY | 2019-11-15 05:56 | XMS REPORT | Continuity of Care Document ---
:1960 Author Organization 0001 - [employer] Address [address] [place] [address] Phone Care Team Providers Name Role Phone GALE HARTMAN MD Unavailable Unavailable Allergies, Adverse Reactions, Alerts Substance Reaction Status No Known Allergies Active Medications Medication Instructions Dosage Effective Dates Status Comments (start - stop) diltiazem ER 180 mg take 1 capsule [...] route 3 times every day as needed. multivitamin tablet take 1 tablet by - Active oral route every day with food coenzyme Q10 10 mg - Active capsule diltiazem ER 180 mg take 1 capsule by - No Longer capsule,24 hr,extended oral route on Active release days of palpatations. Problems Condition Effective Dates (start - stop) Clinical Status Prostate cancer Right testicular pain Prostate cancer Essential (primary) hypertension - Elevated prostate specific antigen - [PSA] Encntr for general adult medical exam w/o abnormal findings Primary osteoarthritis of both hips Spondylosis of lumbar region without myelopathy or radiculopathy Elevated PSA Essential (primary) hypertension Right testicular pain Encounter for surgical aftcr following - [facility] Preop cardiovascular exam PAF (paroxysmal atrial fibrillation) [...] surgical aftcr following - surgery on the [facility] Klebsiella pneumoniae sepsis Prostate cancer Prostate cancer [...] For Visit Copied on Encounter 0001 - S Primary [employer], [facility] GALE. [facility] [address] [place] [address] 9 [address] [place], [place], [place] [address]. [place], [place], tel:[phone], [place] 870947 tel:[phone] 2019 - [facility] Primary [employer], [facility] [place] GALE. [facility] [address] 9 [address] [place], [place], [place] [address]. [place], tel:[phone], [place] 033776 tel:[phone] 2019 - [facility] Urology Prostate cancer Nov-0 [employer], BRYAN. [address] [facility], [facility], [place], [place], [place], [address], [place] [address]. tel:+ tel:[phone] - [facility] Urology Right testicular Nov-0 [employer], painProstate BRYAN. cancer 9 [facility], [facility], [place], [place], [place], [address], [place] [address]. tel:+ tel:[phone] - [facility] Primary Essential [facility], [facility] [place] (primary) GALE. [facility] [place] hypertensionEleva 9 PC 119 Astrid Santiago astrid prostate [facility], specific antigen General acute hospital [[place] [address]. [place], general adult tel:[phone], [place] medical exam w/o 780368 tel:[phone] findingsPrimary osteoarthritis of both hipsSpondylosis of lumbar region without myelopathy or radiculopathy 0001 - [facility] Primary Elevated Jul- [employer], [facility] PSAEssential 8- GALE. [facility] [place] (primary) 9 PC 119 Astrid Santiago hypertension [place], [place], [place] [address]. [place], [place], tel:[phone], [place] 983421 tel:[phone] 0001 [facility] Urology Right testicular KRAVCHICK [employer], painEncounter for BRYAN. 30 surgical aftcr [address] [facility], on the [address], [place], [place], [place], [address], [place] [address]. tel:+60 tel:[phone] - G WS Preop [facility], Cardiology cardiovascular 0-201 DANIEL. [facility] examPAF 9 30 Jack Santiago (paroxysmal [place], atrial [address], [place] fibrillation)Esse [place], [place], ntial (primary) [place], [address], [place] hypertensionCntct [address]. tel:+[phone] w and expsr to tel:[phone] environ tobacco [id number] smoke (acute) (chronic) 0001 [facility] Primary Preoperative [facility], [facility] general physical GALE. [facility] [place] examinationTestic 9 PC 119 Astrid Santiago ular pain, St, [facility], [place], [place], [place] hypertensionParox [address]. [place], ysmal atrial tel:[phone], [place] fibrillationCntct 299619 tel:[phone] w and expsr to [phone] environ tobacco smoke (acute) (chronic) 0001 - S Surgery Right inguinal Lino-2 ARONIS [facility], herniaRight lower 5-201 GARY. 30 33-57 quadrant pain 9 [facility], [place], [address], [place], [place], [place], [address], [place] [address]. tel: tel:[phone] - S Urology Elevated Lino-0 [employer] [facility] [employer], PSATesticular 7-201 BRYAN. 30 33-57 pain, right 9 [facility], [address], [place], [place], [place], [address], [place] [address]. tel: tel:[phone] - S Primary Primary May- [employer] [facility] [employer], [facility] [place] osteoarthritis of GALE. [facility] 33-57 Valley both 9 PC 119 [facility], hypertensionCntct [place], [place] [place] [address]. [place], environ tobacco tel:[phone], [place] smoke (acute) 546460 tel:+ (chronic) [phone] 0001 - S Urology PSA Apr-1 [facility], elevationRight 5-201 BRYAN. 30 33-[address] [facility], [address], [place], [place], [place], [address], [place] [address]. tel: tel:[phone] - S Urology Malignant Apr-0 [facility], neoplasm of 8-201 BRYAN. 30 33-[address] [facility], [address], [place], [place], [place], [address], [place] [address]. tel:+ tel:[phone] - S Primary Prostate Mar- [facility], [facility] [place] cancerEssentia Health 8- GALE. [facility] 33-57 [place] hypertensionCntct 9 PC 119 [facility] w and expsr to [facility], environ tobacco [place], [place] smoke (acute) [address]. [place], (chronic) tel:+ [phone], [place] 276032 tel:+ [phone] 0001 - [facility] Urology Prostate cancer Dec- [employer], BRYAN. [address] [facility], [address], [place], [place], [place], [address], [place] [address]. tel: tel:[phone] - [facility] Urology Hematuria, gross MATIAS [employer], CHRISTOPHER -57 9 . 30 [facility], [place] [address], [place], [place] [address], [place], tel:[phone] tel:[phone] - [facility] Urology Prostate [employer], cancerTesticular BRYAN. pain, 9 [facility] rightProstatitis, [facility], acuteEncounter 460, [place] for surgical [place], [place], [place], [address], [place] surgery [place] the [address]. tel:+ sys tel:[phone] - S Primary Klebsiella Dec-2 [employer], [facility] [place] pneumoniae - GALE. [facility] [place] sepsisProstate 8 PC 119 [facility], [place], [place] [address]. [place], [place], tel:[phone], [place] 819608 tel: [phone] 0001 - [facility] Urology Prostate cancer Sep- [employer]VCEnerneticsK [employer], BRYAN. [address] [facility], [address], [place], [place], [place], [address], [place] [address]. tel: tel:[phone] - S Primary Preoperative Dec-0 [employer], [facility] [place] general physical 3-201 GALE. [facility] [place] examinationGroin 8 PC 119 Whfernandez Santiago pain, chronic, [facility], rightParoxysmal [place], [place] atrial [address]. [place], [place], fibrillationEssen tel:[phone], [place] tial 421567 tel:+60 hypertensionTesti [phone] cular pain, right 0001 - [facility] Urology Testicular pain, Nov- KRAVCHICK [facility], right 0-[address] [facility], [facility], [place], [place], [address], [place] [address]. tel:+60 tel:[phone] - [facility] Urology Elevated PSA Oct- KRAVCHICK [facility] [employer], 1-[address] [facility], [facility], [place], [place], [address], [place] [address]. tel:+ tel:[phone] - S Urology Elevated PSA May-3 KRA[facility]CHICK [facility], 1-[address] [facility], [facility], [place], [place], [address], [place] [address]. tel:+ tel:[phone] - S Surgery Groin pain, Aug-1 ARONIS [facility], chronic, 7-201 GARY. rightOther 8 [facility], Street, painElevated [address], [place] blood pressure [place], [place], [place], [address], [place] [address]. tel:+60 tel:[phone] - S Primary Elevated Aug-0 [employer] [facility] [employer], [facility] [place] PSAEssential 6-201 GALE. [facility] [place] hypertensionCntct 8 PC 119 Astrid Santiago w and expsr to [facility], environ [place], [place] smoke (acute) [address]. [place], (chronic) tel:[phone], [place] 445687 tel:[phone] 0001 - [facility] Primary Elevated Robin-3 [facility], [facility] [place] PSAParoxysmal 0-201 GALE. [facility] [place] atrial 8 PC 119 fernandez Santiago fibrillationEssHorton Medical Center, tial hypertension [place], [place] [address]. [place], [place], tel:[phone], [place] 211003 tel:[phone] [facility] - [facility] Primary Irritable bowel Apr-1 [facility] [employer], [facility] [place] syndrome with 3-201 GALE. [facility] 33-57 [place] constipationEssen 8 PC 119 fernandez Santiago tiaUniversity [facility]als [facility], hypertensionEleva [place], [place] astrid PSAChronic [address]. [place], gastritis without tel:[phone], [place] bleeding, 829962 tel:[phone] gastritis typeEncounter for general adult medical exam w abnormal findingsBody mass index (BMI) 30.0-30.9, adultEncounter for screening for other disorder [facility] - [facility] Primary BronchitisEssenti Dec-2 [facility] [employer], [facility] [place] al 6-201 GALE. [facility] -57 [place] hypertensionCntct 7 PC 119 fernandez Jack w and expsr to [facility], environ tobacco [place], [place] smoke (acute) [address]. [place], (chronic) tel:[phone], [place] 242818 tel:[phone] 0001 - [facility] Surgery Right inguinal Lino-3 [employer], herniaElevated 0-201 GARY. 30 33-57 blood pressure 7 Jack Jack readingEncntr for [facility], f/u exam aft [address], [place] trtmt for cond [place], [place], [address], [place] neoplm [address]. tel:+60 tel:[phone] - [facility] Surgery Right inguinal Lino-0 [employer], herniaElevated 2-201 GARY. 30 33-57 blood pressure 7 Jack wright [facility], [address], [place], [place], [place], [address], [place] [address]. tel:+60 tel:[phone] - [facility] Primary Right groin May-3 [employer] [facility], [facility] [place] hernia 0-201 GALE. [place] [address] [place] 7 PC 119 [facility], [place], [place] [address]. [place], tel:[phone], [place] 676626 tel:[phone] 0001 - [facility] Primary Groin strain, Apr-2 [employer], [facility] [place] right, subsequent 4-[address] encounter 7 PC 119 [facility], [place], [place] [address]. [place], [place], tel:[phone], [place] 952874 tel:[phone] 0001 - [facility] Primary Essential Apr-0 [employer], [facility] [place] (primary) 3- GALE. [address] hypertensionChron 7 PC 119 [facility] ic gastritis [facility], without bleeding, [place], [place] unspecified [address]. [place], gastritis tel:[phone], [place] typeAbdominal 013249 tel:+[phone] muscle strain, [phone] initial encounterParoxysm al atrial fibrillation 0001 - S Primary Acute Oct-3 [employer], [facility] [place] non-recurrent - GALE. [address] maxillary 6 PC 119 [facility] sinusitisBronchMarion Hospital, is [place], [place] [address]. [place], tel:[phone], [place] 162008 tel:[phone] 0001 - [facility] Primary Other specified Oct-2 [employer], [facility] [place] health status 1-[address] 6 PC 119 [facility], [place], [place] [address]. [place], tel:[phone], [place] 575715 tel:[phone] 0001 - [facility] Primary Other specified Oct-0 [employer], [facility] [place] health status 5-[address] 6 PC 119 [facility], [place], [place] [address]. [place], tel:[phone], [place] 000465 tel:[phone] 0001 - [facility] Primary Rubella immune Sep-2 [facility], [facility] status not known GALE. [address] 6 PC 119 [facility], [place], [place] [address]. [place], tel:[phone], [place] 725005 tel:[phone] 0001 - [facility] Primary Encntr for May- [facility], [facility] general adult 2-[address] medical exam w/o 6 PC 119 [facility], findingsEssential [place], [place], [place] (primary) [address]. [place], [place], hypertensionIrrit tel:[phone], [place] able bowel 125079 tel:+60 syndrome with [phone] constipationParox ysmal atrial fibrillation 0001 - [facility] Primary Aug-0 [facility], [facility] 9-[address] 6 PC 119 [facility], [place], [place] [address]. [place], [place], tel:[phone], [place] 735625 tel:[phone] 0001 - [facility] Primary Benign prostatic Aug-0 [facility] hyperplasia with 8-[address] lower urinary 6 PC 119 [facility] tract symptoms, [facility], unspecified [place], [place] morphologyEssenti [address]. [place], [place] (primary) tel:[phone], [place] hypertension 937436 tel:[phone] 0001 - [facility] Primary Irritable bowel Apr-2 [facility], [facility] syndrome with 2-[address] constipation 6 PC 119 [facility], [place], [place] [address]. [place], tel:[phone], [place] 688123 tel:[phone] 0001 - [facility] Primary Essential Dec-1 LORD CAMERON. [facility], [facility] (primary) 7-201 [facility] 119 33-57 [place] hypertension [address], Jack [facility], [place], [place], [place] [address]. [place], tel:[phone], [place] 880771 tel:[phone] 0001 - [facility] Primary HypertensionParox Dec- SKIFF [employer], [facility] [place] ysmal atrial 4-201 GALE. [facility] 33-57 [place] fibrillationBenig 5 PC [address], [facility], hyperplasia with [place], [place] lower urinary [address]. [place], tract symptoms, tel:[phone], [place] unspecified 801645 tel:+[phone] morphologyImpaire [id number] d vision 0001 - [facility] Primary Atrial Sep-2 [employer], [facility] fibrillationPain, 4201 GALE. [facility] 33-57 [place] joint, multiple 5 PC 119 Whfernandez Santiago sitesElevated [facility], blood pressure [place], [place] [address]. [place], [place], tel:[phone], [place] 515381 tel:[phone] 0001 - [facility] Primary Pain, joint, Sep-1 [employer], [facility] [place] multiple 8-201 GALE. [facility] 33-57 [place] sitesScreening 5 PC 119 fernandez Santiago examination for [facility], infection due to [place], [place] a bacteriaFatigue [address]. [place], [place], tel:[phone], [place] 433044 tel:[phone] Family History Family Member Diagnosis Age At Onset Father Diabetes mellitus type 2 Mother Diabetes mellitus type 2 Family h/o Cancer - prostate Mother Cardiovascular disease Father Cardiovascular disease Immunizations Vaccine Date Status Comments Immunization Unknown Payers Payer name Insurance type Covered libertarian ID Authorization(s) [facility] [id number] Social History Type Description Quantity Date Captured [...] Pathology (tissue specimen) Referral Referred To: ordered [facility] [place] [address] [place], [phone] Ordered: Referrals: Urology. [facility]. Consult Referral Ordered: ordered CT [...] Referred To: ordered JAMI BARONE OD [address] [place], [address] [phone] Ordered: Referrals: Jacket Preparer. JAMI BARONE OD. Evaluate and treat Appointment date/timeframe: 2 Weeks Referral Referred To: ordered GALE NOBLES MD [address] [place], [phone] Ordered: Referrals: Cardiology. GALE NOBLES MD. Evaluate [...] Treatment Unknown Instructions Date Instruction Additional Information Screening blood tests done today Related to [...] second Related to Prostate cancer opinion through [facility] after the results of the second [...] take them as prescribed by your primary doctor/pan greaser. Avoid stimulants such as nasal decongestants (Sudafed) [...] take them as prescribed by your primary doctor/pan greaser. Avoid stimulants such as nasal decongestants (Sudafed) [...] as straining or lifting subsequent encounter with [facility] abdomen. If the symptoms persist we can seeka surgical opinion. Continue to folllow with the Related to Paroxysmal atrial pan greaser. fibrillation This should resolve with time. Related [...] around 120/80. Iwill refer to a local pan greaser. Related to Atrial fibrillation Resuming regular physical exercise is Related to Pain, joint, multiple recommended. sites Will screenfor rheumatologic illness, Related to Pain, joint, multiple sites Will have labs done today. Related to Fatigue Will check a lyme titer Related to Screening examination for infection due to a bacteria
--- OUTSIDE RECORDS SUMMARY | 2019-11-15 05:56 | XMS REPORT | Continuity of Care Document ---
:1960 External Reference #:[id number] Author Name Jaylyn Miller M.D. (transmitted by agent of provider Jennifer Huffman) Address [address] [place] [address] Care Team Providers Name Role Phone Roslyn Magana FNP - Family Care Team Information Nailer Operator [phone] Problems Active Problems Provider Date Localized, primary osteoarthritis of the pelvic Jaylyn Miller M.D. Onset: region and thigh Social History Type Date Description Comments Sex Unknown Tobacco Use Start: Unknown Patient has never smoked Smoking Status Reviewed: 09/24/19 Patient has never smoked Allergies, Adverse Reactions, [...] Available Vital Signs Date Vital Result Comment 09/24/2019 2:32pm Height 66 inches 5'6" Weight 184.00 lb Heart Rate 68 /min BP Systolic 148 mmHg BP Diastolic 100 mmHg Body Temperature 97.4 F Pain Level 5 BMI (Body Mass Index) 29.7 kg/m2 Results Description No Information Available Procedures Description No Information Available Medical Devices Description No Information Available Encounters Description No Information Available Assessments Date Code Description Provider 09/24/2019 M25.551 Pain in right hip Jaylyn Miller M.D. 09/24/2019 M16.11 Unilateral primary osteoarthritis, right hip Jaylyn Miller M.D. Plan of Treatment 09/24/2019 - Jaylyn Miller M.D.M25.551 Pain in right hipNew Medication:Oxycodone -Acetaminophen 5-325 mg - 1-2 tabs by mouth every 12 hours as needed for painFollow up:Follow up: 7-10 days before mbgivjoH78.11 Unilateral primary osteoarthritis, right hip Functional Status Description No Information Available Mental Status Description No Information Available Referrals Description No Information Available
--- OUTSIDE RECORDS SUMMARY | 2019-11-15 05:56 | XMS REPORT | Continuity of Care Document ---
:1960 Author Organization 0001 - [employer] [facility] Address [address] [place] [address] Phone Care Team Providers Name Role Phone [...] For Visit Copied on Encounter 0001 - [facility] Urology Elevated PSA [email or web address], 7 BRYAN. 30 57 0 [facility], [facility], [place], [place], [place], [address], [place] [address]. tel:+ tel:[phone] - [facility] Urology [email or web address], 0201 BRYAN. 30 57 9 [address] [address], [place], [place], [place], [address], [place] [address]. tel: tel:[phone] - [facility] Primary Sep- Cambiatta, [facility] GALE. [facility] [place] [address] [place], [place], [place] [address]. [place], tel:[phone], [place] 990786 tel:[phone] 2019 - S Primary Cambiatta, [facility] GALE. [facility] 3357 [place] [address] [place], [place], [place] [address]. [place], tel:[phone], [place] 232739 tel:+ [phone] 0001 - [facility] Urology Prostate cancer Nov-0 [employer], 6-201 BRYAN. 9 [facility], [facility], [place], [place], [address], [place] [address]. tel: tel:[phone] - [facility] Urology Right testicular Nov-0 [employer], painProstate 1-201 BRYAN. cancer 9 [facility], [facility], [place], [place], [place], [address], [place] [address]. tel: tel:[phone] - [facility] Primary Essential Oct-2 [employer], [place] (primary) 1- GALE. [facility] [place] hypertensionEleva 9 PC 119 [facility] prostate [facility] antigen [facility] [[place] [address]. [place], general adult tel:[phone], [place] medical exam w/o 083938 tel: abnormal [phone] findingsPrimary osteoarthritis of both hipsSpondylosis of lumbar region without myelopathy or radiculopathy 0001 - [facility] Primary Elevated Oct-0 [employer], [facility] [place] PSAEssential 8-201 GALE. [facility] [place] (primary) 9 PC 119 [facility] hypertension [facility], [place], [place], [place] [address]. [place], tel:[phone], [place] 588308 tel: [phone] 0001 [facility] Urology Right testicular Aug-2 [employer] GroupVCA[employer] Inc, painEncounter for 3-201 BRYAN. surgical aftcr 9 [facility], on the [address], [place], [place], [place], [address], [place] [address]. tel: tel:[phone] - [facility] Preop Robin-3 AHMED S Inc, Cardiology cardiovascular 0-201 DANIEL. [facility] 33-57 examPAF 9 30 [facility], Street, atrial [address], [place] fibrillation)Esse [place], [place], ntial (primary) [place], [address], [place] hypertensionCntct [address]. tel:[phone] w and expsr to tel:[phone] environ tobacco [id number] smoke (acute) (chronic) 0001 - S Primary Preoperative Apr- SKIFF [facility], [facility] [place] general physical 9-201 GALE. [facility] [address] [place] examinationTestic 9 PC 119 [facility] ular pain, [facility], [place], [place] hypertensionParox [address]. [place], ysmal atrial tel:[phone], [place] fibrillationCntct 276150 tel:[phone] w and expsr to [phone] environ tobacco smoke (acute) (chronic) 0001 - [facility] Surgery Right inguinal Lino-2 ARONIS S Inc, herniaRight lower -201 GARY. 30 33-57 quadrant pain 9 [facility], [address], [place], [place], [place], [address], [place] [address]. tel:+160 tel:[phone] - S Urology Elevated Lino-0 [employer], PSATesticular 7- BRYAN. 30 33-57 pain, right 9 [facility], [address], [place], [place], [place], [address], [place] [address]. tel:+160 tel:[phone] - S Primary Primary January- SKIFF [employer], [facility] [place] osteoarthritis of GALE. [facility] 33-57 [place] both 9 PC 119 [facility], hypertensionCntct [place], [place] [address]. [place], environ tobacco tel:[phone], [place] smoke (acute) 044321 tel:[phone] (chronic) [phone] 0001 - S Urology PSA Apr-1 KRAVCHICK [employer], elevationRight 5-201 BRYAN. 30 33-57 testicular pain 9 [facility], [address], [place], [place], [place], [address], [place] [address]. tel:+ tel:[phone] - [facility] Urology Malignant Apr-0 KRAVCPrimocareK S Inc, neoplasm of BRYAN. 30 prostate 9 [facility], [address], [place], [place], [place], [address], [place] [address]. tel: tel:[phone] - S Primary Prostate Dec- [employer], [facility] [place] cancerEssential GALE. [facility] Valley hypertensionCntct 9 PC 119 Whfernandez Santiago and expsr to [facility], [place], [place], [place] smoke (acute) [address]. [place], (chronic) tel:[phone], [place] 625222 tel: [phone] 0001 [facility] Urology Prostate cancer Dec- [employer], BRYAN. 30 57 9 [facility], [facility], [place], [place], [place], [address], [place] [address]. tel: tel:[phone] - [facility] Urology Hematuria, gross MATIAS [facility] Inc, CHRISTOPHER 57 9 . 30 [facility], [place] Suite [facility], [place], [place] [address], [place], tel:[phone] tel:[phone] [facility] Urology Prostate Oct- [employer], cancerTesticular BRYAN. 30 pain, 9 [facility] rightProstatitis, [facility], acuteEncounter 460, [place] for surgical [place], [place], [place], [address], [place] [address]. tel:+ sys tel:[phone] - [facility] Primary Klebsiella Dec-2 [employer] S Inc, [facility] pneumoniae 4-201 GALE. [facility] 33-57 [place] sepsisProstate 8 PC 119 Whig Jack cancer [facility], [place], [place], [place] [address]. [place], tel:[phone], [place] 353245 tel:[phone] 0001 - S Urology Prostate cancer Dec- KRAVCHICK [facility] [employer], 4-201 BRYAN. 30 8 [facility], [facility], [place], [place], [address], [place] [address]. tel: tel:[phone] - [facility] Primary Preoperative Dec-0 [employer] [facility], [facility] [place] general physical 3-201 GAEL. [facility] 33-57 [place] examinationGroin 8 PC 119 Wh Jack pain, chronic, [facility], rightParoxysmal [place], [place], [place] atrial [address]. [place], fibrillationEssen tel:[phone], [place] tial 548331 tel:+ hypertensionTesti [phone] cular pain, right 0001 - [facility] Urology Testicular pain, Nov- KRAVCHICK [facility] [employer], right 0-201 BRYAN. 30 8 [facility], [facility], [place], [place], [place], [address], [place] [address]. tel: tel:[phone] - [facility] Urology Elevated PSA Oct- KRAVCHICK [facility] [employer], 1-201 BRYAN. 30 8 [facility], [facility], [place], [place], [address], [place] [address]. tel: tel:[phone] - [facility] Urology Elevated PSA May- KRAVCHICK [facility], 1-201 BRYAN. 30 8 [facility], [facility], [place], [place], [address], [place] [address]. tel: tel:[phone] - [facility] Surgery Groin pain, Aug- ARONIS [facility] Inc, chronic, 7-201 GARY. 30 33-57 rightOther 8 Jack Jack chronic [place], [place], painElevated [address], [place] blood pressure [place], [place], [place], [address], [place] [address]. tel:+60 tel:[phone] - S Primary Elevated Aug-0 TRIOS HEALTHFF [employer], [facility] PSAEssential 6-201 GALE. [facility] 33-57 [place] hypertensionCntct 8 PC 119 fernandez Santiago w and expsr to [facility], [place], [place], [place] smoke (acute) [address]. [place], (chronic) tel:[phone], [place] 150373 tel:[phone] 0001 - [facility] Primary Elevated Robin-3 TRIOS HEALTHCelltick TechnologiesS Inc, [facility] PSAParoxysmal 0-201 GALE. [facility] 33-57 [place] atrial 8 PC 119 [facility] fibrillationEssen [facility], tial hypertension [place], [place], [place] [address]. [place], tel:[phone], [place] 951061 tel:[phone] 0001 - S Primary Irritable bowel Apr-1 [employer], [facility] syndrome with 3-201 GALE. [facility] 33-57 [place] constipationEssen 8 PC 119 [facility], hypertensionEleva [place], [place], [place] astrid PSAChronic [address]. [place], gastritis without tel:[phone], [place] bleeding, [address] tel:[phone] gastritis typeEncounter for general adult medical exam w abnormal findingsBody mass index (BMI) 30.0-30.9, adultEncounter for screening for other disorder 0001 - S Primary BronchitisEssenti Dec-2 ViddseeFF [employer], [facility] [place] al 6-201 GALE. [facility] 33-57 [place] hypertensionCntct 7 PC 119 fernandez Santiago w and expsr to [facility], [place], [place] smoke (acute) [address]. [place], (chronic) tel:[phone], [place] 100260 tel:[phone] 0001 - [facility] Surgery Right inguinal Lino-3 ARONIS [facility] [employer], herniaElevated 0-201 GARY. 30 33 blood pressure 7 Jack wrightEncntr for Raad [place], f/u exam aft [address], [place] trtmt for cond [place], [place], [address], [place] neoplm [address]. tel:+60 tel:[phone] - [facility] Surgery Right inguinal Lino-0 ARONIS [facility] [employer], herniaElevated 2-201 GARY. 30 blood pressure 7 Jack Shankar, [place], [address], [place], [place], [place], [address], [place] [address]. tel:+60 tel:[phone] - [facility] Primary Right groin May-3 SK[employer] [facility], [facility] [place] hernia 0-201 GALE. [facility] 7 PC 119 [facility], [place], [place], [place] [address]. [place], tel:[phone], [place] 890850 tel:[phone] 0001 - S Primary Groin strain, Apr-2 SKIFF [facility] [employer], Care [facility], subsequent GALE. [facility] [address] encounter 7 PC 119 fernandez [facility], [place], [place], [place] [address]. [place], tel:[phone], [place] 145943 tel:[phone] 0001 - S Primary Essential Apr-0 [employer], [facility] [place] (primary) 3- GALE. [address] hypertensionChron 7 PC 119 [facility] ic gastritis [facility], without bleeding, [place], [place], [place] unspecified [address]. [place], gastritis tel:[phone], [place] typeAbdominal 097668 tel:+[phone] muscle strain, [phone] initial encounterParoxysm al atrial fibrillation 0001 - S Primary Acute Oct-3 [employer], [facility] [place] non-recurrent GALE. [address] maxillary 6 PC [address] [facility] [address], [place], [place], [place] [address]. [place], tel:[phone], [place] 195245 tel:[phone] 0001 - S Primary Other specified Oct-2 [employer], [facility] [place] health status 1-[address] [place], [place], [place] [address]. [place], tel:[phone], [place] 193023 tel:[phone] 0001 - S Primary Other specified Oct-0 [employer], [facility] [place] health status 5-[address] [place], [place], [place] [address]. [place], tel:[phone], [place] 418659 tel:[phone] 0001 - S Primary Rubella immune Sep-2 TRIOS HEALTHFF S Inc, [facility] [place] status not known GALE. [facility] [address] [place], [place], [place] [address]. [place], tel:[phone], [place] 713021 tel:[phone] 0001 - [facility] Primary Encntr for May- SKIFF [facility], [facility] general adult 2- GALE. [address] medical exam w/o 6 PC 119 [facility], [place], [place], [place] (primary) [address]. [place], hypertensionIrrit tel:[phone], [place] able bowel 962029 tel:+60 syndrome with [phone] constipationParox ysmal atrial fibrillation 0001 - S Primary Aug-0 [employer], [facility] [place] [address] [place], [place], [place] [address]. [place], tel:[phone], [place] 740253 tel:[phone] 0001 - S Primary Benign prostatic Aug-0 TRIOS HEALTHFF S Inc, [facility] hyperplasia with [address] lower urinary 6 PC 119 Whig Jack tract symptoms, [facility], unspecified [place], [place] morphologyEssenti [address]. [facility], [place], al (primary) tel:[phone], [place] hypertension 648729 tel:[phone] 0001 - S Primary Irritable bowel Apr-2 SK[employer], [facility] syndrome with 2-201 GALE. [facility] 33-57 [place] constipation 6 PC 119 [facility], [place], [place] [address]. [place], tel:[phone], [place] 072232 tel:[phone] 0001 - S Primary Essential Dec-1 LORD CAMERON. S Inc, [facility] (primary) 7-201 UHSP[facility] 119 33-57 [place] hypertension 5 Whig , [facility], [place], [place], [place] [address]. [place], tel:[phone], [place] 875423 tel:[phone] 0001 - S Primary HypertensionParox Dec-1 TRIOS HEALTHFF S Inc, [facility] ysmal atrial 4-201 GALE. [facility] -57 [place] fibrillationBenig 5 PC 119 [facility] n prostatic [facility], hyperplasia with [place], [place], [place] lower urinary [address]. [place], tract symptoms, tel:[phone], [place] unspecified 316135 tel:[phone] morphologyImpaire [id number] d vision 0001 - S Primary Atrial Sep-2 TRIOS HEALTHFF S Inc, [facility] fibrillationPain, 4-201 GALE. [facility] 33- [place] joint, multiple 5 PC 119 fernandez Jack sitesElevated [facility], blood pressure [place], [place], [place] [address]. [place], tel:[phone], [place] 064293 tel:[phone] 0001 - S Primary Pain, joint, Sep-1 SKIFF [employer], [facility] multiple 8-201 GALE. [facility] 33-57 [place] sitesScreening 5 PC 119 [facility] examination for [facility], infection due to [place], [place], [place] a bacteriaFatigue [address]. [place], tel:[phone], [place] 463834 [phone] Family History Family Member Diagnosis Age At Onset Father Diabetes mellitus type 2 Mother Diabetes mellitus type 2 Family h/o Cancer - prostate Mother Cardiovascular disease Father Cardiovascular disease Immunizations Vaccine Date Status Comments Immunization Unknown Payers Payer name Insurance type Covered libertarian ID Authorization(s) [facility] [id number] Social History Type Description Quantity Date Captured [...] Pathology (tissue specimen) Referral Referred To: ordered [facility] [address] [place], [address] [phone] Ordered: Referrals: Urology. [facility]. Consult Referral Ordered: ordered CT Urogram (No PO Contrast) Appointment date/timeframe: 12/04/2018 Referral Ordered: ordered MRI, Pelvis w/ and w/o contrast Appointment date/timeframe: 11/27/2018 Referral Ordered: ordered Urology (related to Elevated PSA) Referral Ordered: ordered Referrals: Urology. Location: [facility] Urology Referral Ordered: ordered Xray Chest 2 view Appointment date/timeframe: Today Referral Ordered: ordered *EKG Complete Appointment date/timeframe: Today Referral Ordered: ordered Referrals: Surgery. Location: [facility] Surgery. Evaluate and treat Appointment date/timeframe: 03/15/2017 Referral Referred To: ordered JAMI BARONE OD [address] [place], [address] [phone] Ordered: Referrals: [employer]. JAMI BARONE OD. Evaluate and treat Appointment date/timeframe: 2 Weeks Referral Referred To: ordered GALE NOBLES MD [address] [place], [address] [phone] Ordered: Referrals: Cardiology. GALE NOBLES MD. Evaluate [...] general adult medical exam w/o abnormal findings [facility] Related to Primary osteoarthritis of both hips Followed by urology Related to Elevated prostate specific antigen [PSA] Will start hydrochlorthiazide once a Related to [...] radiofrequency catheter ablation for atrial fibrillation in [place] currently on diltiazem and propafenone, no anti-coagulation [...] second Related to Prostate cancer opinion through [facility] after the results of the second [...] take them as prescribed by your primary doctor/pile operator. Avoid stimulants such as nasal decongestants (Sudafed) [...] take them as prescribed by your primary doctor/pile operator. Avoid stimulants such as nasal decongestants (Sudafed) [...] as straining or lifting subsequent encounter with ross abdomen. If the symptoms persist we can seeka surgical opinion. Continue to folllow with the Related to Paroxysmal atrial pile operator. fibrillation Can use Rolaids or tums to reduce Related to Chronic gastritis symptoms. Watch for evidence of blood without bleeding, unspecified in the stool. gastritis type This should resolve with time. Related to Abdominal muscle strain, initial encounter Will check old records as he liked [...] recommended. sites Iwill refer to a local pile operator. Related to Atrial fibrillation Will screenfor rheumatologic illness, Related to Pain, joint, multiple sites Will have labs done today. Related to Fatigue Will check a lyme titer Related to Screening examination for infection due to a bacteria
--- OUTSIDE RECORDS SUMMARY | 2019-11-15 05:56 | XMS REPORT | Continuity of Care Document ---
:1960 Author Organization 0001 - [facility] [employer] Address [address] [place] [address] Phone Care Team Providers Name Role Phone [...] surgical aftcr following - surgery on the [facility] Preop cardiovascular exam PAF (paroxysmal atrial fibrillation) [...] surgical aftcr following - surgery on the [facility] Klebsiella pneumoniae sepsis Prostate cancer Prostate cancer [...] For Visit Copied on Encounter 0001 - [facility] Primary Sep- virocyt, [facility] GALE. [facility] [place] [address] [place], [place], [place] [address]. [place], tel:[phone], [place] 112621 tel: [phone] 2019 - [facility] Urology Sep- [employer], BRYAN. [address] [place] [address], [place], [address], [place] [address]. tel: tel:[phone] - [facility] [address] [place] [address] 9 [address] [place], [place], [place] [address]. [place], tel:[phone], [place] 138361 tel: [phone] 2019 [facility] Urology Prostate cancer Aug- [employer], BRYAN. [address] [place] [address], [place], [place], [place], [address], [place] [address]. tel: tel:[phone] - [facility] Urology Right testicular Nov-0 [employer], painProstate 1-201 BRYAN. cancer 9 Jack Santiago [facility], [address], [place], [place], [place], [address], [place] [address]. tel:+ tel:[phone] - S Primary Essential Oct-2 [employer], [facility] (primary) 1-201 GALE. [facility] [place] hypertensionEleva 9 PC [address], [facility], specific antigen [facility] [[place] [address]. [place], general adult tel:[phone], [place] medical exam w/o 029394 tel: abnormal [phone] findingsPrimary osteoarthritis of both hipsSpondylosis of lumbar region without myelopathy or radiculopathy 0001 - [facility] Primary Elevated Oct-0 [employer], [facility] PSAEssential 8-201 GALE. [facility] [place] (primary) 9 PC 119 fernandez Santiago [facility] [place], [place] [address]. [place], tel:[phone], [place] 903122 tel: [phone] 0001 [facility] Urology Right testicular Aug-2 [employer], painEncounter for 3-201 BRYAN. surgical aftcr 9 Jack Santiago following surgery [facility], on the [address], [place], [place], [place], [address], [place] [address]. tel: tel:[phone] - [facility] Preop [employer], Cardiology cardiovascular 0-201 DANIEL. [facility] examPAF 9 30 Jack Santiago (paroxysmal Street, Street, atrial [address], [place] fibrillation)[facility] [place], [place], ntial (primary) [place], [address], [place] hypertensionCntct [address]. tel:[phone] w and expsr to tel:[phone] environ tobacco [id number] smoke (acute) (chronic) 0001 - [facility] Primary Preoperative [employer], [facility] [place] general physical 9-201 GALE. S [address] [place] examinationTestic 9 PC 119 [facility] ular pain, [facility], [place], [place], [place] hypertensionParox [address]. [place], ysmal atrial tel:[phone], [place] fibrillationCntct 698032 tel:[phone] w and expsr to [phone] environ tobacco smoke (acute) (chronic) 0001 - S Surgery Right inguinal Lino-2 ARONIS [employer], herniaRight lower 5-201 GARY. 30 33-57 quadrant pain 9 [facility], [place], [address], [place], [place], [place], [address], [place] [address]. tel:+60 tel:[phone] - S Urology Elevated Lino-0 [employer], PSATesticular 7-201 BRYAN. 30 33-57 pain, right 9 [facility], [address], [place], [place], [place], [address], [place] [address]. tel:+60 tel:[phone] - S Primary Primary May-1 [employer], [facility] [place] osteoarthritis of 7-201 GALE. [facility] 33-57 [place] both 9 PC 119 [facility], hypertensionCntct [place], [place] [address]. [place], environ tobacco tel:[phone], [place] smoke (acute) 158928 tel:[phone] (chronic) [phone] 0001 - S Urology PSA Apr-1 [employer], elevationRight 5-201 BRYAN. 30 33-57 testicular pain 9 [facility], [address], [place], [place], [place], [address], [place] [address]. tel:+60 tel:[phone] - S Urology Malignant Apr-0 [facility], neoplasm of 8-201 BRYAN. 30 33-57 prostate 9 [facility], [address], [place], [place], [place], [address], [place] [address]. tel:+ tel:[phone] - S Primary Prostate Mar- [employer] Inc, [facility] [place] cancerEssential 8-201 GALE. [facility] 33-57 [place] hypertensionCntct 9 PC 119 fernandez Santiago and expsr to [facility], [facility] smoke (acute) [address]. [place], (chronic) tel:[phone], [place] 811400 tel:[phone] 0001 - [facility] Urology Prostate cancer Dec- [employer], BRYAN. 57 9 [facility], [facility], [place], [place], [place], [address], [place] [address]. tel:+ tel:[phone] - [facility] Urology Hematuria, gross MATIAS [facility], 3 CHRISTOPHER -57 9 . 30 [facility], [place] [address], [place], [place] [address], [place], tel:[phone] tel:[phone] - [facility] Urology Prostate Oct- [employer], cancerTesticular BRYAN. pain, 9 [facility] rightProstatitis, [facility], acuteEncounter [facility], [place] for surgical [place], [place], [place], [address], [place] [address]. tel:+ sys tel:[phone] - S Primary Klebsiella Dec-2 [employer], [facility] [place] pneumoniae 4- GALE. [facility] [address] [place] sepsisProstate 8 PC 119 [facility], [place], [place], [place] [address]. [place], tel:[phone], [place] 816396 tel:[phone] 0001 - [facility] Urology Prostate cancer Dec- [employer]K [employer], BRYAN. 30 8 [facility], [facility], [place], [place], [place], [address], [place] [address]. tel: tel:[phone] - [facility] Primary Preoperative Dec-0 [facility] [facility], [facility] [place] general physical 3-201 GALE. S 57 [place] examinationGroin 8 PC 119 Whig Jack pain, chronic, [facility] [address], rightParoxysmal [place], [place] atrial [address]. [place], fibrillationEssen tel:[phone], [place] tial 895174 tel:+60 hypertensionTesti [id number] cular pain, right 0001 - [facility] Testicular pain, Nov-3 [employer], right 0-201 BRYAN. 8 [facility], [facility], [place], [place], [place], [address], [place] [address]. tel: tel:[phone] - [facility] Urology Elevated PSA Oct-3 [employer] [facility] [employer], 1-201 BRYAN. 30 8 [facility], [facility], [place], [place], [place], [address], [place] [address]. tel: tel:[phone] 0005 - [facility] Urology Elevated PSA Aug-3 [employer] [facility] [employer], 1-201 BRYAN. 30 8 [facility], [facility], [place], [place], [place], [address], [place] [address]. tel: tel:[phone] - [facility] Surgery Groin pain, Aug-1 ARONIS [facility], chronic, 7-201 GARY. rightOther 8 [facility], painElevated [address], [place] blood pressure [place], [place], [place], [address], [place] [address]. tel: tel:[phone] - [facility] Primary Elevated Aug-0 [employer] [facility], [facility] [place] PSAEssential 6-201 GALE. [facility] [place] hypertensionCntct 8 PC 119 Astrid Santiago w and expsr to [facility], [place], [place], [place] smoke (acute) [address]. [place], (chronic) tel:[phone], [place] 068835 tel:[phone] 0001 - S Primary Elevated Robin-3 [facility] Inc, [facility] PSAParoxysmal 0-201 GALE. [facility] 57 [place] atrial 8 PC 119 [facility] fibrillationEssen [facility], tial hypertension [place], [place] [address]. [place], tel:[phone], [place] 920547 tel:[phone] 0001 - S Primary Irritable bowel Apr-1 [facility], [facility] syndrome with 3-201 GALE. [facility] 33[address]57 [place] constipationEssen 8 PC 119 [facility], hypertensionEleva [place], [place] astrid PSAChronic [address]. [place], gastritis without tel:[phone], [place] bleeding, 160866 tel:[phone] unspecified [phone] gastritis typeEncounter for general adult medical exam w abnormal findingsBody mass index (BMI) 30.0-30.9, adultEncounter for screening for other disorder 0001 - [facility] Primary BronchitisEssenti Dec-2 [facility], [facility] [place] al 6-201 GALE. [facility] 33-57 [place] hypertensionCntct 7 PC 119 Astrid Santiago w and expsr to [facility], [place], [place], [place] smoke (acute) [address]. [place], (chronic) tel:[phone], [place] 582579 tel:[phone] 0001 - [facility] Surgery Right inguinal Lino-3 [employer], herniaElevated 0-201 GARY. blood pressure 7 Jack Santiago readingEncntr for [facility], f/u exam aft [address], [place] trtmt for cond [place], [place], [address], [place] neoplm [address]. tel:+60 tel:[phone] - S Surgery Right inguinal Lino-0 [facility]ONIS [facility], herniaElevated 2- GARY. 30 blood pressure 7 [facility], [place], [address], [place], [place], [place], [address], [place] [address]. tel:+160 tel:[phone] - [facility] Primary Right groin May-3 [employer] [facility], [facility] hernia 0- GALE. [facility] - Valley 7 PC 119 [facility], [place], [place], [place] [address]. [place], tel:[phone], [place] 300771 tel:[phone] 0001 - S Primary Groin strain, Apr-2 [facility] [facility], [facility] [place] right, subsequent GALE. [facility] [place] encounter 7 PC 119 [facility], [place], [place], [place] [address]. [place], tel:[phone], [place] 948465 tel:[phone] 0001 - S Primary Essential Apr-0 [employer] [facility], [facility] [place] (primary) GALE. [facility] [place] hypertensionChron 7 PC 119 [facility] ic gastritis [facility], without bleeding, [place], [place], [place] unspecified [address]. [place], gastritis tel:[phone], [place] typeAbdominal 051174 tel:[phone] muscle strain, [id number] initial encounterParoxysm al atrial fibrillation 0001 - S Primary Acute Jul-3 [facility], [facility] [place] non-recurrent GALE. [facility] - [place] maxillary 6 PC 119 [facility] sinusitisBronchit [facility], is [place], [place], [place] [address]. [place], tel:[phone], [place] 935859 tel:[phone] 0001 - S Primary Other specified Oct-2 [facility] [facility], [facility] [place] health status - GALE. [facility] Valley 6 PC 119 [facility], [place], [place] [address]. [place], tel:[phone], [place] 082075 tel:[phone] 0001 - [facility] Primary Other specified [facility] Inc, [facility] health status 5-201 GALE. [facility] [address] 6 PC 119 [facility], [place], [place] [address]. [place], tel:[phone], [place] 8[address] tel:[phone] 0001 - [facility] Primary Rubella immune Sep-2 [facility] Inc, [facility] status not known 9 GALE. [facility] [address] 6 PC 119 [facility], [place], [place] [address]. [place], tel:[phone], [place] 103151 tel:[phone] 0001 - [facility] Primary Encntr for [facility], [facility] general adult 2-[address] medical exam w/o 6 PC 119 [facility] abnormal [facility], findingsEssential [place], [place], [place] (primary) [address]. [place], hypertensionIrrit tel:[phone], [place] able bowel [address] tel:+60 syndrome with [phone] constipationParox ysmal atrial fibrillation 0001 - [facility] Primary May-0 [facility] [employer], [facility] 9- GALE. [facility] [address] 6 PC 119 [facility], [place], [place] [address]. [place], tel:[phone], [place] 045500 tel:[phone] 0001 - [facility] Primary Benign prostatic May-0 [facility] S Inc, [facility] hyperplasia with 8-201 GALE. [facility] [address] lower urinary 6 PC 119 [facility] tract symptoms, [facility], unspecified [place], [place] morphologyEssenti [address]. [place], [place] (primary) tel:[phone], [place] hypertension 105596 tel:[phone] 0001 - [facility] Primary Irritable bowel Apr-2 [facility], [facility] syndrome with 2-201 GALE. [facility] [address] [place] [address] constipation 6 PC 119 [facility], [place], [place] [address]. [place], tel:[phone], [place] 913352 tel:[phone] 0001 - [facility] Primary Essential Dec-1 LORD CAMERON. S Inc, [facility] [place] (primary) 7-201 [facility] 119 33-57 [place] hypertension 5 Whig , [facility], [place], [place], [place] [address]. [place], tel:[phone], [place] 873889 tel:[phone] 0001 - [facility] Primary HypertensionParox Dec-1 [facility] Inc, [facility] [place] ysmal atrial 4-201 GALE. [facility] 33-57 [place] fibrillationBenig 5 PC 119 [facility] n prostatic [facility], hyperplasia with [place], [place], [place] lower urinary [address]. [place], tract symptoms, tel:[phone], [place] unspecified 834253 tel:[phone] morphologyImpaire [id number] d vision 0001 - [facility] Primary Atrial Sep-2 [facility] Inc, [facility] fibrillationPain, 4-201 GALE. [facility] 33-57 [place] joint, multiple 5 PC 119 [facility] sitesElevated [facility], blood pressure [place], [place], [place] [address]. [place], tel:[phone], [place] 118764 tel:[phone] 0001 - [facility] Primary Pain, joint, Sep-1 [facility] Inc, [facility] [place] multiple 8-201 GALE. [facility] 33-57 [place] sitesScreening 5 PC 119 [facility] examination for [facility], infection due to [place], [place] a bacteriaFatigue [address]. [place], [place], tel:[phone], [place] 660391 tel:[phone] Family History Family Member Diagnosis Age At Onset Father Diabetes mellitus type 2 Mother Diabetes mellitus type 2 Family h/o Cancer - prostate Mother Cardiovascular disease Father Cardiovascular disease Immunizations Vaccine Date Status Comments Immunization Unknown Payers Payer name Insurance type Covered alliance party ID Authorization(s) [facility] [id number] Social History Type Description Quantity Date Captured [...] Pathology (tissue specimen) Referral Referred To: ordered [facility] [address] [place], [address] [phone] Ordered: Referrals: Urology. [facility]. Consult Referral Ordered: ordered CT Urogram (No PO Contrast) Appointment date/timeframe: 12/04/2018 Referral Ordered: ordered MRI, Pelvis w/ and w/o contrast Appointment date/timeframe: 11/27/2018 Referral Ordered: ordered Urology (related to Elevated PSA) Referral Ordered: ordered Referrals: Urology. Location: [facility] Urology Referral Ordered: ordered Xray Chest 2 view Appointment date/timeframe: Today Referral Ordered: ordered *EKG Complete Appointment date/timeframe: Today Referral Ordered: ordered Referrals: Surgery. Location: [facility] Surgery. Evaluate and treat Appointment date/timeframe: 03/15/2017 Referral Referred To: ordered JAMI BARONE OD [address] [place], [address] [phone] Ordered: Referrals: Medical Laboratory Technician. JAMI BARONE OD. Evaluate and treat Appointment date/timeframe: 2 Weeks Referral Referred To: ordered GALE NOBLES MD [address] [place], [address] [phone] Ordered: Referrals: Cardiology. GALE NOBLES MD. Evaluate [...] second Related to Prostate cancer opinion through [facility] after the results of the second [...] take them as prescribed by your primary doctor/employee services manager. Avoid stimulants such as nasal decongestants (Sudafed) [...] take them as prescribed by your primary doctor/employee services manager. Avoid stimulants such as nasal decongestants (Sudafed) [...] as straining or lifting subsequent [facility] abdomen. If the symptoms persist we can seeka surgical opinion. Continue to folllow with the Related to Paroxysmal atrial employee services manager. fibrillation This should resolve with time. Related [...] around 120/80. Iwill refer to a local employee services manager. Related to Atrial fibrillation Resuming regular physical exercise is Related to Pain, joint, multiple recommended. sites Will screenfor rheumatologic illness, Related to Pain, joint, multiple sites Will check a lyme titer Related to Screening examination for infection due to a bacteria Will have labs done today. Related to Fatigue
[2019-11-15] MEDS ORDERED: Acetaminophen TAB* 325 MG PO ONE (06:00)
[2019-11-15] MEDS ORDERED: celeCOXIB CAP* 200 MG PO ONE (06:00)
[2019-11-15] MEDS ORDERED: ROPIVACAINE 5 MG/ML 30 ML BTL (0.5%) ONE (07:00)
[2019-11-15] MEDS ORDERED: Acetaminophen TAB* 325 MG ONE (07:00)
[2019-11-15] MEDS ORDERED: Buffered Lidocaine 1% SYRIN* 1 ML/SYRINGE INTRADERM ONE (07:01)
[2019-11-15] MEDS ORDERED: ceFAZolin 2 GM in NS PREMIX(*) 2 GM/100 ML BAG IVPB ONE (07:01)
[2019-11-15] MEDS ORDERED: celeCOXIB CAP* 200 MG ONE (07:01)
[2019-11-15] MEDS: Lactated Ringers 1000 ML Bag* 1,000 ML IV SCH ×2 (07:06→12:14)
[2019-11-15] MEDS ORDERED: Midazolam* 1 MG/ML 2 ML VIAL (2 MG) ONE (07:32)
[2019-11-15] MEDS ORDERED: fentaNYL* 50 MCG/ML 5 ML VIAL (250 MCG VIAL) ONE (07:33)
[2019-11-15] MEDS ORDERED: Lidocaine 2% PF * 5 ML VIAL ONE (07:34)
[2019-11-15] MEDS ORDERED: Propofol* 500 MG/50 ML BTL ONE (07:34)
[2019-11-15] MEDS ORDERED: fentaNYL* 50 MCG/ML 2 ML VIAL (100 MCG VIAL) ONE (08:06)
[2019-11-15] MEDS ORDERED: EPHEDrine (Pressors)* 50 MG/ML VIAL ONE (08:35)
[2019-11-15] MEDS ORDERED: Propofol* 10 MG/ML 20 ML BTL ONE (10:02)
[2019-11-15] MEDS ORDERED: Naloxone* 0.4 MG/ML 1 ML VIAL IV PRN (10:19)
[2019-11-15] MEDS ORDERED: Ondansetron INJ* 2 MG/ML VIAL IV PRN ×2 (10:19→10:42)
[2019-11-15] MEDS ORDERED: oxyCODONE TAB* 5 MG TAB PO PRN (10:19)
[2019-11-15] MEDS ORDERED: diPHENhydraMINE IV* 50 MG/ML 1 ml VIAL (BENADRYL) IV PRN ×2 (10:19→10:42)
[2019-11-15] MEDS ORDERED: traMADol TAB* 50 MG PO PRN (10:42)
[2019-11-15] MEDS ORDERED: oxyCODONE/Acetamin 5/325 MG* TAB PO PRN (10:42)
[2019-11-15] MEDS ORDERED: diPHENhydraMINE PO* 25 MG PO PRN (10:42)
[2019-11-15] MEDS ORDERED: Polyethylene Glycol 3350* 17 GM PACKET PO PRN (10:42)
[2019-11-15] MEDS ORDERED: Ondansetron ODT TAB* 4 MG PO PRN (10:42)
[2019-11-15] MEDS ORDERED: Morphine INJ* 2 MG/ML 1 ML SYRINGE (TWO MG - NEW SYRINGE VERSION) IV PRN (10:42)
[2019-11-15] MEDS ORDERED: Magnesium Hydroxide LIQ* 30 ML UDC PO PRN (10:42)
[2019-11-15] MEDS ORDERED: Ondansetron TAB* 4 MG PO PRN (10:42)
[2019-11-15] MEDS ORDERED: ALPRAZolam TAB* 0.5 MG PO PRN (10:46)
[2019-11-15] MEDS ORDERED: HYDROmorphone INJ1* 1 MG/ML SYRINGE ONE (10:55)
[2019-11-15] MEDS: HYDROmorphone INJ1* 1 MG/ML SYRINGE IV PRN ×3 (10:55→11:09)
[2019-11-15] MEDS ORDERED: Lactated Ringers 1000 ML Bag* 1,000 ML IV SCH (11:00)
[2019-11-15] MEDS: oxyCODONE TAB* 5 MG TAB PO PRN ×3 (12:12→20:52)
--- NOTE | 2019-11-15 12:28 | CONS ---
HOSPITAL MEDICINE CONSULTATION REPORT: DATE OF CONSULT: 11/15/19 PROVIDER: Zulma Bowser NP ATTENDING PHYSICIAN: Dr. Miller. CONSULTING PHYSICIAN: Dr. Melani Brothers. REASON FOR CONSULT: Co-management of chronic medical conditions. HISTORY OF PRESENT ILLNESS: Mr. Man is a 59-year-old gentleman with medical history of atrial fibr illation, hypertension, prostate cancer, and sleep apnea. Mr. Man presents to [facility] for right total h ip arthroplasty with Dr. Miller on 11/15/19. Please see dictated history and physical from ALINA Russell, for complete details. In brief, the patient had ongoing pain, failed conservative treatmen t and opted for right total hip arthroplasty. Due to the patient's chronic medical conditions, [facility] Medicine was requested to follow the patient's hospitalization to manage chronic medical condi tions. PAST MEDICAL HISTORY: Atrial fibrillation, hypertension, prostate cancer, sleep apnea. PAST SURGICAL HISTORY: Left shoulder clavicle resection, hemorrhoidectomy, hernia repair x2, cardiac ablation. CURRENT MEDICATIONS: 1. Propafenone 150 mg as needed - last dose 2 months ago approximately. 2. Xanax 2.5 mg as needed. 3. Diltiazem 180 mg as needed. 4. Multivitamin daily. 5. CoQ10 daily. ALLERGIES: No known drug allergies. FAMILY HISTORY: Mother is related to lung cancer. Father is related to lung cance r. Also, father had history of [place]. SOCIAL HISTORY: The patient lives with his , Marcella. She is his surrogate decision maker. The pa tient denies DNR/DNI. The patient denies drug use. Denies smoking. Reports occasional alcohol cons umption. REVIEW OF SYSTEMS: No fevers, no chills, no unintended weight loss reported. Denies chest pain, shor tness of breath, or edema. Denies cough. Denies nausea, vomiting, or diarrhea. Reports regular bow el movements. Denies blood in the stool. Denies gross hematuria. Denies dysuria. No focal weaknes s or sensory loss. Denies visual complaints. Denies dysphagia. Denies hearing loss. Denies sore t hroat. Musculoskeletal: No arthralgias or myalgias. Skin: No rashes, lesions, or lacerations. De nies depression. Occasional anxiety. PHYSICAL EXAM: Temperature 98.1, blood pressure 124/81, heart rate 60, respirations 16, and 98% SpO2 on room air. Mr. Man is lying in bed flat, without acute distress. Neuro: The patient is alert and oriented x3. Pupils are PERRL. Material Handler Floorperson equal. Tongue midline. Facial features symmetric. No foc al weakness. Extraocular movements are intact. Lung sounds are clear throughout. Heart: S1, S2. N o murmurs, rubs, or gallops. Heart rate is regular. Bowel sounds present in all 4 quadrants. No te nderness noted on palpation. Extremities: Full range of motion bilateral arms, left leg, right leg. CMST positive in 4 extremities. Pedal pulses positive bilaterally. Right hip dressing clean, dry, and intact. No cyanosis or edema in extremities. Skin is intact. LABORATORY DATA: Labs from 10/08/19: White blood cell 5, red blood cell 5.11, hemoglobin 15.3, anthony tocrit 46.3, platelets 199. Sodium 139, potassium 4.2, chloride 105, BUN 19, creatinine 0.9, glucose 89, calcium 9.4. PT 10.3, INR 1. IMPRESSION AND PLAN: Mr. Man is a 59-year-old gentleman with significant history of atrial fibrill ation, hypertension, prostate cancer, sleep apnea, and bacterial prostatitis. Mr. Man presents to the hospital today for right total hip arthroplasty. In the immediate postoperative period, he is wi thout complaints other than pain in his right hip. Hospital Medicine was called regarding management of chronic disease. Our recommendations are as follows: 1. Status post right total hip arthroplasty. Management will be by Orthopedics. 2. History of atrial fibrillation. Currently in sinus rhythm. We will continue diltiazem 180 mg da ching. 3. Hypertension. Well controlled without medication. 4. Sleep apnea. The patient provided his own CPAP machine to wear at night. 5. DVT prophylaxis: As per Ortho. 6. Code status is full code. 7. FEN: Regular diet. TIME SPENT: Approximately 40 minutes was spent in the consultation of this patient, more than half t hat time was spent with the patient at bedside reviewing the events leading thus far during the hospi talization, performing physical examination, and reviewing my plan of care. I have discussed this with my attending, Dr. Melani Brothers; she is in agreement with plan of care. ZULMA BOWSER, OPERATOR LIGHTS [id number]/[facility] #: [id number]
[2019-11-15] MEDS: Acetaminophen TAB* 325 MG PO SCH ×2 (14:05→20:45)
--- NOTE | 2019-11-15 15:38 | PN ---
Progress Note - Progress Note Date of Service: 11/15/19 Note: Pt seen OOB in chair POD 0. He feels very well and desires DC home sherine. He has walked with PT, one assist essentially stand by assist and will do the stairs in the morning. Denies CP, SOB, dizziness, nausea. Dressing CDI, thigh soft, df/ pf intact, dp2+, sensation intact to light touch distally. Plan for DC home tomorrow morning. He has completed a full first PT session and as long as he does will with PT in the morning and goals are met he could tentatively be ready to DC home.
[2019-11-15] MEDS ORDERED: NS 0.9% 50 ML* 50 ML ONE (16:15)
[2019-11-15] MEDS: ceFAZolin 1 GM ADVAN(*) 1 GM in NS 0.9% 50 ML* 50 ML IVPB SCH (16:21)
--- NOTE | 2019-11-15 17:59 | CONS ---
CONSULTATION REPORT: ADDENDUM: CURRENT MEDICATIONS: Xanax. The patient's dose should be 0.5 as needed. ZULMA BOWSER, DARNELL [id number]/[facility] #: [id number] MTDD
--- NOTE | 2019-11-15 18:15 | OP ---
Operative Report - Blank - Operative Report Date of Operation: 11/15/19 Note: EDINSON CARRION 1960 Date Of Surgery: 11/15/19 Jaylyn Miller MD Ham Curer: Salvatore FULLER did help throughout the procedure with preparation of the hip, wound retraction, manipulation of the hip, and wound closure. Anesthesiologist: Dr. Jj Anesthesia Type: Spinal Preoperative Diagnosis: Right severe degenerative osteoarthritis of the hip Postoperative Diagnosis: As above Procedure Performed: Right Total Hip Arthroplasty Complications: None Specimen: Femoral head and acetabular reamings sent to pathology. Hardware used: This is uncemented Benjamin total hip arthroplasty hardware for the femur a size 5 accolade II with 127 neck angle femoral component, for the acetabulum a size 50D trident II tritanium cluster hole shell, one 20 mm screw, for the insert a size 32D trident X3 polyethylene insert, and for the femoral head a size 32 - 4 biolox ceramic V40 femoral head. Brief history/Indication: EDINSON CARRION was known in clinic and had a history of severe right hip pain. He failed conservative treatment with anti- inflammatories, pain pills, intra-articular injections and physical therapy. He elected to undergo right total hip arthroplasty due to continued pain and decreased quality of life. Radiographs showed severe end stage osteoarthritis of the hip with bone on bone contact. Informed consent was obtained from the patient. He understood the risks of surgery included but were not limited to: bleeding, infection, damage to nearby structures, intraoperative fracture, nerve palsy, failure of the hardware, early loosening, stiffness or loss of motion, dislocation, leg length discrepancy, anesthesia complications, stroke, heart attack, blood clot and . He wished to proceed. Intra-Operative findings: Intraoperatively the patient was noted to have severe loss of cartilage of the acetabulum and femoral head. Description of the Procedure: EDINSON CARRION was identified in the preanesthesia unit. His right hip was marked as the correct operative side. Informed consent was signed and placed in the chart. The patient was taken to the operating room and placed under anesthesia without complication. A drake catheter was placed. The patient was placed on the peg board with all bony prominences well padded. The right lower extremity was prepped and draped in the usual sterile fashion. Preoperative time-out was made to correctly identify the patient, side and site. Appropriate intraoperative antibiotics were given within one hour of incision. A standard posterior incision was made and carried sharply down to the lateral fascia. A new 10 blade was used to make an incision in the fascia in line with the skin incision. A charnley retractor was placed. The piriformis and conjoined tendons were identified and elevated off the posterolateral femur using electrocautery. These were tagged with number 5 Ethibond. Next electrocautery was used to make a posterolateral capsular flap and this was tagged with number 5 Ethibonds. The hip was carefully dislocated. Lesser trochanter to the center of the femoral head was measured at 62 mm. The oscillating saw was used to make the femoral neck cut. The femoral head was carefully removed. The femur was retracted anteriorly and the acetabular retractors were placed. Long-handled knife was used to sharply remove any remaining labrum from the acetabular rim. The acetabulum was sequentially reamed up to a size 50. A bleeding subchondral bone bed was obtained. A trial liner was placed and had excellent fit and stability. A 50D cup with one screw was placed and had excellent stability with appropriate anteversion and abduction angle. A size 32D liner was impacted into the acetabular shell. The liner was checked for stability and was stable. Next attention was turned to preparation of the femoral canal. A canal finder was used to enter the proximal femur. The femoral canal was sequentially broached up to a size 5 femoral broach trial. A trial neck and 32 - 4 trial femoral head was chosen. Lesser trochanter to center of the femoral head measurement was satisfactory. The hip was reduced and taken through a range of motion. The hip was stable in all positions with good soft tissue tension and appropriate leg lengths. The hip was dislocated and all trials were removed. The final implant chosen was a accolade II size 5. This stem was impacted into the femoral canal without difficulty. The stem was stable with appropriate anteversion. The femoral head chosen was a 32- 4 ceramic head. The head was impacted onto the femoral neck without difficulty. The final lesser trochanter to center of the femoral head measurement was satisfactory. The hip was reduced and taken through a range of motion. The hip was stable in all positions with good soft tissue tension and appropriate leg lengths. The hip was copiously irrigated with sterile saline. The previously tagged capsule and tendons were repaired to the posterolateral femur through two trochanteric drill holes. The lateral fascia layer was closed using number 1 vicryls. The rest of the incision was closed in a layered fashion using 0 and 2-0 vicryls. The skin was closed using 3-0 monocryl suture and Dermabond. Sterile adaptic, 4x4s and paper tape was used to cover the incision. The patients anesthesia was reversed without difficulty. He was taken to the PACU in stable condition. Intended weight-bearing will be as tolerated with posterior hip precautions.
[2019-11-15] MEDS: Magnesium Hydroxide LIQ* 30 ML UDC PO SCH (20:53)
[2019-11-15] MEDS: Docusate CAP* 100 MG PO SCH (20:53)
[2019-11-15] MEDS ORDERED: Diltiazem CD CAP* 180 MG PO SCH (21:00)
[2019-11-16] MEDS: Acetaminophen TAB* 325 MG PO SCH (05:45)
[2019-11-16] MEDS: oxyCODONE TAB* 5 MG TAB PO PRN (05:49)
[2019-11-16 06:43] LABS: Hematocrit 30 % (42-52); Hemoglobin 10.5 g/dL (14.0-18.0); Mean Platelet Volume 8.5 fL (7.4-10.4); Platelet Count 154 10^3/uL (150-450)
[2019-11-16 07:01] LABS: Calcium 8.3 mg/dL (8.6-10.3); Potassium 4.5 mmol/L (3.5-5.0)
[2019-11-16 07:06] LABS: BUN/Creatinine Ratio 12.6 (8-20); EGFR African American 109.1 (>60); EGFR Non-African American 90.1 (>60)
[2019-11-16] MEDS: Docusate CAP* 100 MG PO SCH (07:57)
[2019-11-16] MEDS: Cyclobenzaprine TAB* 10 MG PO PRN ×2 (07:58→12:23)
[2019-11-16] MEDS: Magnesium Hydroxide LIQ* 30 ML UDC PO SCH (07:59)
[2019-11-16] MEDS: ceFAZolin 1 GM ADVAN(*) 1 GM in NS 0.9% 50 ML* 50 ML IVPB SCH ×3 (08:54)
[2019-11-16] MEDS ORDERED: Vitamin THERAPEUTIC TAB PO SCH (09:00)
[2019-11-16] MEDS ORDERED: Calcium Carbonate CHEW TAB* 500 MG (TUMS) PO SCH (09:00)
[2019-11-16] MEDS ORDERED: Apixaban* 2.5 MG TAB PO SCH (09:00)
--- NOTE | 2019-11-16 09:25 | PN ---
Progress Note - Progress Note Date of Service: 11/16/19 SOAP: Subjective: [Pt was seen this am sitting up in chair. States that he is doing well. He is doing well with PT and has done stairs twice with PT at this point. He has met his PT goals. He also states that his pain is well controlled at this point. He denies any chest pain, SOB, nausea or vomiting. He would like to go home today after lunch. ] Objective: [General: Pt is alert and oriented x3. NAD MSK, RLE: dressing is c/d/i. Dressing was changed and incision was c/d/i. There is no drainage or erythema. +df/pf. No TTP along the calf. The pt has a 2+ DP pulse. Vital Signs Temp 99.3 F 11/16/19 07:41 Pulse 95 11/16/19 07:41 Resp 18 11/16/19 08:00 BP 111/58 11/16/19 07:41 Pulse Ox 96 11/16/19 08:00 Intake & Output 11/15/19 11/16/19 11/16/19 18:59 06:59 18:59 Intake Total 2180 2605 480 Output Total 400 1545 Balance 1780 1060 480 Intake: IV Fluids 1100 2005 ABX - CEFTRIAXONE 155 LR 1100 1850 Oral 1080 600 480 Output: Contreras 400 1545 Other: # Bowel Movements 0 0 ] Assessment: [POD 1 RTHA ] Plan: [Eliquis 2.5mg bid x30 days Percocet 5/325 for pain relief PT, continue with home exercises DC home today. ]
--- NOTE | 2019-11-16 09:32 | DS ---
Orthopedic Discharge Summary - Discharge Summary Date of Admission:11/15/19 Date of Discharge: 11/16/2019 Date of Surgery: 11/15/2019 Attending Orthopedic Provider: Dr. Miller Pre-operative Diagnosis: Right hip osteoarthritis Operative Procedure: Right total hip replacement Disposition of Patient: Home Home care vs Outpatient services: Depends on VAs approval Condition of Patient: Good Pain medication RX at discharge: Percocet 5/325 DVT prophylaxis RX at discharge: Eliquis 2.5 mg History: EDINSON CARRION is a 59 year old M with years of increasingly severe right hip pain. Patient has failed conservative management and has elected to undergo a right total hip replacement Hospital Course: EDINSON was admitted to [facility] on 11/15/19. Patient underwent a right total hip replacement without complication followed by a brief recovery in PACU and transfer to the Short Stay Surgical Unit in stable condition. Our hospitalist service, physical therapy and occupational therapy also participated in this patients care. Post-op day 1: patient was alert and in no acute distress. Dressing was clean, dry and intact. Operative extremity dorsiflexion and plantarflexion intact, sensation intact to light touch distally, DP2+. Dressing was changed, incision was clean, dry and intact. Patient was deemed to be medically and orthopedically stable for discharge. Physical therapy goals were met. Home Medications Medication Instructions Recorded Confirmed Type ALPRAZolam TAB* [Xanax TAB*] 0.5 mg PO TID PRN 05/14/19 11/15/19 History Multivitamin [Multiple Vitamins] 1 tab PO QAM 05/14/19 11/15/19 History Tumeric 500 mg PO QAM 05/14/19 11/15/19 History dilTIAZem HCl [Diltiazem 24Hr ER 180 mg PO BEDTIME 05/14/19 11/15/19 History (Cd)] proPAFENone 150 mg TAB [Rythmol*] 150 mg PO Q8H PRN 05/14/19 11/15/19 History Ubidecarenone [Coq10] 100 mg PO QAM 11/02/19 11/15/19 History oxyCODONE/Acetamin 5/325 MG* 1 tab PO BEDTIME PRN 11/02/19 11/15/19 History [Percocet 5/325 TAB*] Discharge Instructions following Orthopedic Surgery: Activity: * Weight Bearing as tolerated * Continue physical therapy and occupational therapy exercises as shown * If you have elected to have home physical therapy, continue therapy exercises at home. If you have elected outpatient physical therapy, please start therapy as an outpatient right away. Hip replacements: Continue Hip Precautions- do not cross legs or bend greater than 90 degrees/squat Wound care: * OK to shower on post-op day 3, no bathing, swimming, or submerging wound. * Use gentle soap, pat dry. Cover with gauze, TEE wrap or tape. * If you elected to have a visiting home nurse, they will perform wound checks. Call Orthopedic office for: * Increased drainage * Redness * Increased pain * Fever Go to ER with shortness of breath or chest pain. Diet: * Regular diet * Increase fluids and fiber to prevent constipation. * Continue to use stool softeners, call office if no bowel motion within 48 hours. Medications See Home Medication List in your packet for medications that you should take after discharge. DVT Prophylaxis: Eliquis Dosin.5 mg, 1 tab every 12 hours x 30 days Pain Control: Percocet 5/325 mg 1 tab for moderate pain and 2 tabs for severe pain by mouth every 4 hours as needed. Maximum of 10 tabs per day. Hold for sedation , wean off as soon as pain allows Please note that Percocet contains Tylenol (acetaminophen). Maximum daily dose of Tylenol is 4000 mg from all sources. Antibiotics are required prior to any dental work. FOLLOW UP: Follow up with Dr. Miller Within 10-14 days, call for appointment Please call our office with any questions or concerns ([phone])
[2019-11-16 11:15] VITALS: BP 107/55
[2019-11-16] MEDS ORDERED: Diltiazem CD CAP* 180 MG PO SCH (20:00)
== END 2019-11-16 12:35 | disposition home health service (06) | DRG 470 ==
LOC: AA 05:52 → SSU 11:53
PROVIDERS: ADMIT Orthopaedic Surgery Adult Reconstructive Orthopaedic Surgery; ATTEND Orthopaedic Surgery Adult Reconstructive Orthopaedic Surgery
PROC: 0SR904A Replacement of Right Hip Joint with Ceramic on Polyethylene Synthetic Substitute, Uncemented, Open Approach (ICD-10-PCS; principal; 2019-11-15 08:00)
DX: M16.11 Unilateral primary osteoarthritis, right hip (principal); I48.91 Unspecified atrial fibrillation; I10 Essential (primary) hypertension; G47.33 Obstructive sleep apnea (adult) (pediatric); F41.9 Anxiety disorder, unspecified; I48.0 Paroxysmal atrial fibrillation; J30.2 Other seasonal allergic rhinitis; Z85.46 Personal history of malignant neoplasm of prostate; Z79.899 Other long term (current) drug therapy
CPT/HCPCS: 36415; 72170; 80048; 85014; 85018; 85049; 88304; 88311; A9270-GY; C1713; C1776; J0690; J1170; J2250; J2270; J2704; J2795; J3010